=== PATIENT | female | born 1945 | race Caucasian/White ===

== ENCOUNTER 2018-08-22 11:46 | Inpatient (IN) ==
[2018-08-22] MEDS ORDERED: PEPCID ONE (12:52)
[2018-08-22] MEDS ORDERED: KEFZOL 1 GM/D5W 1 GM/50 ML IVPB ONE (12:52)
[2018-08-22] MEDS ORDERED: LR 1,000 ML ONE (12:52)
[2018-08-22] MEDS ORDERED: REGLAN ONE (12:52)
[2018-08-22] MEDS ORDERED: COLACE ONE (13:10)
[2018-08-22] MEDS ORDERED: LYRICA ONE (13:10)
[2018-08-22] MEDS ORDERED: DIPRIVAN 1% ONE (13:17)
[2018-08-22] MEDS ORDERED: XYLOCAINE-MPF 2% ONE (13:19)
[2018-08-22] MEDS ORDERED: QUELICIN (DOSE) ONE (13:20)
[2018-08-22] MEDS ORDERED: TOBRAMYCIN POWDER MISC ONE (15:15)
[2018-08-22] MEDS ORDERED: VANCOMYCIN ONE (15:46)
[2018-08-22] MEDS ORDERED: NEOSPORIN G.U. IRRIGANT ONE (15:46)
[2018-08-22 16:57] LABS: HEMATOCRIT 31.8 % (37.0-47.0); HEMOGLOBIN 10.6 g/dL (12.0-16.0); MCH 30.5 PG (27-31); MCHC 33.3 g/dL (33-37); MCV 91.6 FL (81-99); MPV 9.1 FL (7.4-10.4); RBC 3.47 XMIL (4.2-5.4); RDW 13.4 % (11.5-14.5); WBC 5.83 X1000 (4.8-10.8)
[2018-08-22 17:12] LABS: AGAP 11; BUN 8 mg/dL (8-22); CHLORIDE 98 mmol/L (98-107); COSMO 270; CREATININE 0.5 mg/dL (0.5-0.9); ESTIMATED GFR > 60; GLUCOSE 94 mg/dL (70-104); POTASSIUM 3.2 mmol/L (3.5-5.1); SODIUM 136 mmol/L (136-145); TCO2 27 mmol/L (25-35)
[2018-08-22] MEDS ORDERED: ZOFRAN ONE (17:43)
[2018-08-22] MEDS ORDERED: DECADRON ONE (17:43)
[2018-08-22] MEDS ORDERED: NS 1,000 ML ONE (18:47)
[2018-08-22] MEDS ORDERED: MORPHINE ONE (18:48)
[2018-08-22] MEDS: DEMEROL ONE ×2 (18:51→18:56)
[2018-08-22] MEDS ORDERED: VALIUM PO PRN (20:30)
[2018-08-22] MEDS ORDERED: MORPHINE IV PRN ×3 (21:15)
[2018-08-22] MEDS ORDERED: ZOFRAN PO PRN (21:15)
[2018-08-22] MEDS ORDERED: OXY IR PO PRN ×2 (21:15)
[2018-08-22] MEDS: PERIDEX MT SCH (22:12)
[2018-08-22] MEDS: NS 1,000 ML IV SCH (22:12)
[2018-08-22] MEDS: DIOVAN PO SCH (22:12)
[2018-08-22] MEDS: THEO-DUR PO SCH (22:12)
[2018-08-22] MEDS: CHLOR-TRIMETON PO SCH (22:12)
[2018-08-23] MEDS: KEFZOL 1 GM/D5W 1 GM/50 ML IVPB IV SCH ×2 (00:13→08:41)
[2018-08-23 00:14] LABS: URINE SOURCE CLEAN CATCH
[2018-08-23 00:37] LABS: BILIRUBIN URINE NEGATIVE (NEGATIVE); BLOOD URINE NEGATIVE (NEGATIVE); COLOR YELLOW; GLUCOSE URINE NEGATIVE (NEGATIVE); KETONE URINE NEGATIVE (NEGATIVE); LEUKOCYTES URINE NEGATIVE (NEGATIVE); NITRITE URINE NEGATIVE (NEGATIVE); PROTEIN URINE NEGATIVE (NEGATIVE); SP GRAVITY URINE 1.002; TURBIDITY URINE CLEAR (CLEAR); UR EPITHELIAL CELLS <10 /HPF (<10); URINE BACTERIA NEGATIVE /HPF; URINE RBC <10 /HPF (<10); URINE WBC <10 /HPF (<10); UROBILINOGEN URINE NORMAL (NORMAL)
[2018-08-23] MEDS: PRILOSEC PO SCH (06:00)
[2018-08-23 06:21] LABS: HEMATOCRIT 32.2 % (37.0-47.0); HEMOGLOBIN 10.5 g/dL (12.0-16.0)
[2018-08-23 06:28] LABS: AGAP 12; BUN 13 mg/dL (8-22); CALCIUM 8.8 mg/dL (8.8-10.2); CHLORIDE 98 mmol/L (98-107); COSMO 273; CREATININE 0.6 mg/dL (0.5-0.9); ESTIMATED GFR > 60; GLUCOSE 111 mg/dL (70-104); POTASSIUM 3.5 mmol/L (3.5-5.1); SODIUM 136 mmol/L (136-145); TCO2 26 mmol/L (25-35)
--- NOTE | 2018-08-23 07:39 | OPERATIVE NOTE ---
PROCEDURE DATE: 08/22/2018 PREOPERATIVE DIAGNOSIS: Infection, right reverse shoulder arthroplasty. POSTOPERATIVE DIAGNOSIS: Infection, right reverse shoulder arthroplasty. PROCEDURE: Irrigation, debridement, and application antibiotic beads right reverse shoulder arthroplasty. SURGEON: Xavi Singh MD. BROOM BUILDER: Ej Mcneil RN. ANESTHESIA: General. IV FLUIDS: 800 mL lactated Ringer's. ESTIMATED BLOOD LOSS: 50 mL. COMPLICATIONS: None. INDICATION: This is a 73-year-old female who is approximately 1 month status post right reverse shoulder arthroplasty. The patient upon sustaining a wound dehiscence and had a large hematoma, which was evacuated in the office a week and a half to 2 weeks ago. He underwent local I and D and closure of wound in the office. He was maintained on antibiotics. He continues with residual drainage and cultures were obtained revealing Staphylococcus epidermidis. Given this finding, recommendation to proceed with irrigation and debridement and application antibiotic beads. Risks and benefits of surgery were explained, including the risks of anesthesia, , bleeding, infection, failure to relieve pain, postoperative stiffness, nerve injury, blood clots, and other imponderables. All questions answered. Patient and family wished to proceed. OPERATION: The patient was taken to the operating room and placed supine on the operating table. Once adequate anesthesia was obtained, patient placed in semi-[place]- chair position. The right shoulder was subsequently prepped and draped in usual sterile fashion. The previous surgical sutures were removed from the area of the wound dehiscence, and it was further extended both proximally and distally. The patient did have some superficial purulent- type fluid up under the subcutaneous tissue. It extended under the medial skin envelope. He had some fluid at the joint level 2 with retraction. Intraoperative cultures were obtained. Debridement was conducted as well. The prosthesis is in good position and we had smooth articulation and no evidence of obvious pathology. After adequate debridement had been conducted, 3000 mL of antibiotic pulsatile lavage was copiously irrigated throughout the wound. After this was performed, one bag of Bactisure was irrigated. This was followed by 300o mL of pulsatile lavage for final irrigation. The antibiotic beads, which had been prepared at the beginning of the case, were then placed in the deep soft tissue, as well as subcutaneous tissue. A 1/8 Hemovac drain was placed and was not sewn in. 2-0 Prolene was then used to repair this to repair the skin. Adaptic, sterile 4 x 4s, ABD pad, and tape applied to the right upper extremity. The patient tolerated the procedure well. No complications. Transferred to the recovery room in stable condition. cc: Xavi Singh MD MTDD
--- NOTE | 2018-08-23 08:29 | PROGRESS NOTE ---
DATE: 08/23/2018 SUBJECTIVE: Patient is a pleasant 73-year-old female, who is 1 day status post I and D right reverse shoulder arthroplasty and application of antibiotic beads. She is currently resting comfortably. OBJECTIVE: Right upper extremity: On physical examination, the patient's right upper extremity dressing is intact. She is neurovascularly intact distally. Able to actually elevate her arm. Good asphalt layer strength. LABORATORY DATA: Her hemoglobin is 10.5, hematocrit is 32.2. Patient did have normal sedimentation rate at 7 and normal C-reactive protein at 2.53 on yesterday's lab. Intraoperative Gram stain was negative. Cultures are pending. IMPRESSION: Postoperative day #1 status post incision and drainage and application of antibiotic beads for right reverse shoulder arthroplasty. PLAN: At this point, we will await the culture results. Dr. Black has been consulted, and will await his recommendations. cc: Xavi Singh MD
[2018-08-23] MEDS: PERIDEX MT SCH ×2 (08:41→20:49)
[2018-08-23] MEDS: THEO-DUR PO SCH ×2 (08:42→20:48)
[2018-08-23] MEDS: HYDROCHLOROTHIAZIDE PO SCH (08:42)
[2018-08-23] MEDS: CATAPRES PO SCH (08:43)
[2018-08-23] MEDS: DIOVAN PO SCH ×2 (08:49→20:48)
[2018-08-23] MEDS: NS 1,000 ML IV SCH (10:39)
[2018-08-23 10:45] LABS: INR 0.91
[2018-08-23] MEDS ORDERED: NS 250 ML ONE (11:38)
--- NOTE | 2018-08-23 13:53 | INFECTIOUS DISEASE CONSULT REP ---
DATE: 08/23/2018 CONCLUSION: The patient has a Staph epidermidis infected right total shoulder arthroplasty. RECOMMENDATIONS: I plan on treating the patient with Ancef 2 g IV every 8 hours for 6 weeks and then following that with a low dose of Keflex for a chronic basis. I have also ordered that a PICC should be placed now and also have consulted [facility] to supply the patient's home IV antibiotic. I plan on having the patient back in the office at 3 weeks after discharge and then 6 weeks after discharge, at which time the PICC will be removed and the patient will be placed on a low dose of Keflex, such as 250 to 500 mg p.o. every 12 hours on a chronic basis. DISCUSSION: The patient underwent a total shoulder arthroplasty. After the surgery she developed a serosanguineous drainage from the patient's shoulder. An aspirate of the shoulder grew Staph epidermidis. The culture was wrongly labeled as being from the left hip, but the culture in fact was from the right shoulder. The patient's laboratory studies thus far show a CBC with a white count of 5,830, hemoglobin 10.5, and platelet count 304,000. Creatinine is 0.6. GFR is greater than 60. Urinalysis showed no white cells or bacteria. PAST MEDICAL HISTORY/REVIEW OF SYSTEMS: Eyes and ears: The patient has decreased hearing and vision. Neck: No stiffness. Respiratory: No cough or shortness of breath. Cardiac: No chest pain or palpitations. GI: No nausea, vomiting, or diarrhea. Gastrointestinal: No dysuria or flank pain. Bones, joints, muscle: See present illness. Endocrine: Patient does not have diabetes or thyroid disease. Neurologic: The patient does not have seizures. She can walk without difficulty. She does not have a tremor. Integument: No rash. VALIDATION INTERN HISTORY: Patient has never been . PREVIOUS HOSPITALIZATIONS AND OPERATIONS: Yesterday she underwent irrigation, debridement, and application of antibiotic beads to the right reverse shoulder arthroplasty. She had a right total shoulder arthroplasty performed and she has also had ear surgeries and she was in the hospital once because of a cat bite. MEDICAL DISEASES: Positive for hypertension, osteoarthritis, and asthma. INFECTIOUS DISEASE HISTORY: Positive for urinary tract infection. Negative for pneumonia. FAMILY HISTORY: Positive for diabetes mellitus, myocardial infarction, and stroke. SOCIAL HISTORY: [place] She is . She has dogs and cats for pets. ALLERGIES: She is allergic to sulfa. She also said she is allergic to penicillin. She told me that she once had an injection of penicillin and the area of the injection turned black. The patient guessed that it was possibly from 2 to 3 inches in diameter. She did not have any problems breathing or having a rash. The patient he received Ancef at her surgery when she had her total arthroplasty put in and she did not have any problem with cefazolin. The patient has had Keflex in the past and tolerated it well. HOME MEDICATIONS: Include amlodipine, Chlor-Trimeton, clonidine, diazepam, hydrochlorothiazide, hydrocodone, omeprazole, Theophylline, and valsartan. PHYSICAL EXAMINATION: Vital signs: Temperature is 98.3 degrees, pulse 51, respirations 12, blood pressure 118/57. Patient is 5 feet tall and weighs 129 pounds. General: This is a fairly healthy-appearing, elderly female. She is in no acute distress. Head, eyes, ears, nose, and throat: She has decreased hearing. She wears glasses. There is no drainage from her nose or ears. She does not have any white patches on her tongue. Neck: No meningismus. Thorax: No increased AP diameter. Bones, joints, muscles: The patient has a dressing on the patient's right shoulder and a drain is in place. Lungs: Clear to auscultation. Cardiovascular: Heart rate is regular. Abdomen: Soft and nontender. Extremities: The patient has slight edema of the legs but no erythema. Neurologic: The patient is alert. She can move her extremities. There is no tremor. She has decreased hearing, as mentioned above. Her sensation was intact to touch. Her memory as regarding her medical history was intact. Integument: No rash noted. Thank you for the consult. cc: MD Xavi Prater MD
[2018-08-23] MEDS: KEFZOL 2 GM/D5W 2 GM/50 ML IVPB IV SCH (17:07)
[2018-08-23] MEDS: NORVASC PO SCH (20:48)
[2018-08-23] MEDS: CHLOR-TRIMETON PO SCH (20:48)
[2018-08-24] MEDS: KEFZOL 2 GM/D5W 2 GM/50 ML IVPB IV SCH ×2 (00:27→11:55)
[2018-08-24] MEDS: NS 1,000 ML IV SCH (00:27)
[2018-08-24] MEDS ORDERED: TYLENOL PO PRN (01:01)
[2018-08-24 06:53] LABS: HEMATOCRIT 32.1 % (37.0-47.0); HEMOGLOBIN 10.6 g/dL (12.0-16.0)
[2018-08-24] MEDS: PRILOSEC PO SCH (06:58)
[2018-08-24] MEDS: CATAPRES PO SCH (11:49)
[2018-08-24] MEDS: PERIDEX MT SCH (11:50)
[2018-08-24] MEDS: NORVASC PO SCH ×2 (11:52→12:08)
[2018-08-24] MEDS: HYDROCHLOROTHIAZIDE PO SCH (11:53)
[2018-08-24] MEDS: DIOVAN PO SCH (11:54)
[2018-08-24] MEDS: THEO-DUR PO SCH (12:08)
[2018-08-24 12:25] VITALS: BP 161/61
--- NOTE | 2018-08-24 13:50 | PROGRESS NOTE ---
DATE: 08/24/2018 SUBJECTIVE: The patient is 73-year-old female who is 2 days status post I and D and application antibiotic beads for right reverse shoulder total arthroplasty. She has currently resting comfortably, no significant complaints. OBJECTIVE: Patient's dressing was changed. Wound has some expected drainage, no increased warmth or erythema. She has good smooth articulation of the shoulder. Neurovascular intact distally. Her intraoperative cultures were negative. IMPRESSION: Postoperative day #2 status post incision and drainage and application antibiotic beads right reverse shoulder arthroplasty. PLAN: At this point the patient has received her PICC line and will receive home IV antibiotics with Ancef 2 g IV q.8 hours for [address] Black. All the home arrangements have been made. Will discharge her home and see her back in the office in 12 to 14 days. cc: Xavi Singh MD
--- NOTE | 2018-08-24 13:59 | INFECTIOUS DISEASE PROGRESS NO ---
DATE: 08/24/2018 PRESENT ILLNESS: Ms. Madden has a Staph epidermidis infection to the right shoulder status post right total arthroplasty. She has had an irrigation and debridement with application of antibiotic beads to that right shoulder on this admission. MEDICATIONS: She is on day 1 of Kefzol 2 g IV every 8 hours. PHYSICAL EXAMINATION: Vital Signs: Temperature 98.2 degrees, pulse rate 55, respiratory rate 16, blood pressure 165/80 O2 saturation 99% on room air. General: This is a chronically ill- appearing, elderly female. She is sitting up in the bed, in no acute distress. HEENT: Atraumatic, normocephalic. Oral mucous membranes are pink and moist. Conjunctivae are pale pink. Neck: Supple. Trachea is midline. Cardiovascular: Heart rate is regular. Pedal and radial pulses are palpable bilaterally. Respiratory: Lung sounds are clear and diminished in the bases bilaterally. Respiratory excursion is normal and symmetric. Abdomen: Soft, round, and nontender. Bowel sounds are active. Neurologic: The patient is awake, alert, and oriented. She is able to move all extremities with generalized weakness. Extremities: There is a dressing, which is dry and intact, to her right shoulder and a PICC line to the left upper arm, the site of which has no edema, erythema, or drainage. LABORATORY AND X-RAY: Today, her hemoglobin is 10.6. No other labs drawn today. Her previous right shoulder culture grew Staph epidermidis, however, it was labeled incorrectly as her left hip. No imaging reports today. ASSESSMENT AND PLAN: Ms. Madden has a Staphylococcus epidermidis infection to her right total shoulder arthroplasty. She will need 6 weeks of treatment with Ancef 2 g intravenously every 8 hours. She will be followed by [facility] for home infusions and home health care. We will see her back in our office at 3 weeks and then again at 6 weeks, at which time we should be able to remove the peripherally inserted central catheter and put her on low-dose Keflex for chronic prophylaxis. The previous plans have been discussed with and recommended by Dr. Black. COMORBIDITIES: She is elderly, with arthritis, osteoporosis, chronic anxiety and depression, and poor hearing. Dictated by SABRINA Mcdonald for Sunday Black MD This chart was documented by, SABRINA Mcdonald and accurately reflects the services performed, treatment plan and medical decisions as attested by the providers signature Sunday Black MD. cc: MD Xavi Prater MD MTDD
== END 2018-08-24 14:15 | disposition home health service (06) | DRG 512 ==
LOC: OR 11:46 → 4N 18:15
PROVIDERS: ADMIT Orthopaedic Surgery Adult Reconstructive Orthopaedic Surgery; ATTEND Orthopaedic Surgery Adult Reconstructive Orthopaedic Surgery
CPT/HCPCS: 36569; 80048; 81001; 85014; 85018; 85027; 85610; 85651; 86140; 87070; 87075; 87205; 94761; 94799; 97162; 97530; A9270; J0330; J0690; J1100; J2175; J2270; J2405; J3260; J3370; J7030; J7050; J7120

== ENCOUNTER 2018-11-01 09:40 | Inpatient (IN) ==
--- NOTE | 2018-11-01 10:41 | PROVIDER DOCUMENTATION ---
This chart was entered by Bekah Ryder Scribe, acting as scribe for Kamlesh Collins MD. HPI-General Adult - General Chief Complaint: Flu Symptoms Stated Complaint: N/V Time Seen by Provider: 11/01/18 10:16 Source: patient Allergies/Adverse Reactions: Patient Allergies Allergy/AdvReac Type Severity Reaction Status Date / Time Penicillins Allergy Unknown Verified 08/22/18 13:10 Sulfa (Sulfonamide Allergy Unknown Verified 08/22/18 13:10 Antibiotics) Home Medications: Home Medication List Medication Instructions Recorded Confirmed Last Taken Type Hydrochlorothiazide 25 mg PO QAM 12/20/17 11/01/18 08/22/18 07:00 History Omeprazole 20 mg PO DAILY 12/20/17 11/01/18 08/22/18 07:00 History Clonidine HCl 1 tab PO QAM 12/28/17 11/01/18 08/22/18 07:00 History Theophylline E.r. [Jerry-Dur] 300 mg PO BID 12/28/17 11/01/18 08/22/18 07:00 History Valsartan 160 mg PO BID 12/28/17 11/01/18 08/22/18 07:00 History Amlodipine Besylate 5 mg PO DAILY 07/24/18 11/01/18 08/21/18 19:00 History Chlorpheniramine [Chlor-Trimeton] 4 mg PO HS 07/24/18 11/01/18 08/22/18 07:00 History Diazepam 5 mg PO BID PRN PRN 07/24/18 11/01/18 07/26/18 09:00 History Hydrocodone/Acetaminophen [[place] 1 each PO PRN PRN 07/24/18 11/01/18 Unknown History 5-325 Tablet] CephALEXIN [Keflex] 250 mg PO BID 11/01/18 11/01/18 Unknown History Ondansetron HCl 4 mg PO PRN PRN 11/01/18 11/01/18 Unknown History - History of Present Illness -Gen Adult Nature of Presenting Problems: Patient is a 73 year old female who presents to the ED with loss of appetite and nausea. Patient states symptoms have been present for 3 days. Patient denies vomiting and fever. Followed by Dr. Hernandez. Patient is worried about dehydration but her mouth is moist and is urinating well. Location of Pain/Injury: reports: none Pain Radiation: reports: no radiation Quality of Pain: reports: none Severity: reports: mild Onset/Duration: reports: 4 days ago Timing: reports: still present Context/Activities at Onset: reports: light activity Modifying Factors: improves with: nothing Associated Symptoms: reports: loss of appetite, nausea, weakness Similar Symptoms Previously?: Yes Recently seen or treated by another doctor?: Yes Review of Systems - Adult - REVIEW OF SYSTEMS - ADULT Constitutional: reports: no symptoms reported Eyes: reports: no symptoms reported Ears, Nose, Mouth & Throat: reports: no symptoms reported Cardiovascular: reports: no symptoms reported Respiratory: reports: no symptoms reported Gastrointestinal: reports: nausea, poor appetite. denies: abdominal pain, diarrhea, vomiting Genitourinary: reports: no symptoms reported Musculoskeletal: reports: muscle weakness. denies: back pain, neck pain Integumentary: reports: no symptoms reported Neurological: reports: no symptoms reported Psychiatric: reports: no symptoms reported Endocrine: reports: no symptoms reported Hematologic/Lymphatic: reports: no symptoms reported Allergic/Immunologic: reports: no symptoms reported All Other Systems: Reviewed and Negative Past History - Adult - PAST MEDICAL HISTORY-ADULT Review of Records: reports: Old Records Reviewed, Nursing Assessment Review, Medications Reviewed, Social history reviewed & non-contributory. Major Childhood Illnesses: reports: Measles Cardiovascular: reports: HTN Respiratory: reports: asthma Gastrointestinal: reports: denies history Obstetrical/Gynecological: reports: denies history Genitourinary: reports: denies history Musculoskeletal: reports: arthritis, osteoporosis Neurological: reports: denies history Endocrine/Immune: reports: denies history Other Conditions: reports: denies history - PRIOR SURGERIES/PROCEDURES Surgical/Procedure History: reports: tonsillectomy, joint replacement (shoulder) , other (ear surgery) - IMMUNIZATION STATUS Childhood Immunizations: See Nurse Assessment Flu Vaccine: See Nurse Assessment - FAMILY HISTORY Family History: reviewed, not pertinent - SOCIAL HISTORY Smoking: denies Substance Use: denies Living Situation: family Physical Exam-General - PHYSICAL EXAM-ADULT Initial Vital Signs Reviewed: Yes - CONSTITUTIONAL General Appearance: alert, no apparent distress - EYES Eyes: PERRL/EOMI - HEAD, EARS, NOSE, MOUTH & THROAT HENMT: moist mucous membranes, normal ENT inspection - RESPIRATORY Respiratory: chest non-tender, lungs clear, normal breath sounds - CARDIOVASCULAR Cardiovascular: normal peripheral pulses, regular rate, rhythm - SKIN Integumentary: normal color, normal turgor, warm/dry - NEUROLOGIC Neurologic: grossly normal - PSYCHIATRIC Psych/Mental Status: normal mood/affect, oriented x 3 Progress - PLAN OF CARE/RESULTS Progress/Plan/Lab Results: Vital Signs - 8 hr 11/01/18 09:56 Temperature 98.8 F Pulse Rate 75 Respiratory Rate 18 Blood Pressure 143/81 O2 Sat by Pulse Oximetry 97 Orders Category Date Time Status Flu [INFLUENZA SCREEN PL] Stat Lab 11/01/18 10:00 Received Result Diagrams: 11/01/18 11:55 11/02/18 06:59 - CONSULTS/PCP/HOSPITALIST Notification #1 *Consult/PCP/Hospitalist*: Dr. Hernandez, hospitalist Time Discussed: 18:45 Reason/Comments: patient continues to have low Na/K despite IV replacement Consult Disposition: Admit Departure - Departure Date of Disposition Decision: 11/01/18 Time of Disposition Decision: 18:30 DIAGNOSIS: Anorexia, Hypokalemia, Hyponatremia Disposition: ADMITTED INPATIENT 09 Certified Medical Emergency: Emergent Condition: Stable - Critical Care Note This patient required my direct & personal management of CC.: No Attestation - Physician/ [place] Attestation The physician spent face to face time with patient:: Yes Advanced Practice Provider documentation review:: Supervising physician onsite and consulted in the evaluation and care of this patient. The physician did have a face to face encounter with the patient. This chart was documented by the indicated scribe, (Bekah Ryder Scribe) and accurately reflects the services I performed and decisions made by me, Kamlesh Collins MD, as attested by the provider's signature.
[2018-11-01 10:57] LABS: INFLUENZA A NEGATIVE (NEGATIVE)
[2018-11-01 10:58] LABS: INFLUENZA B NEGATIVE (NEGATIVE)
[2018-11-01 12:06] LABS: BASO# 0.01 X1000 (0.0-0.2); BASO% 0.1 % (0.0-0.8); HEMATOCRIT 38.8 % (37.0-47.0); HEMOGLOBIN 13.9 g/dL (12.0-16.0); IMM GRAN# 0.01 X1000 (0.0-0.04); IMM GRAN% 0.1 % (0.0-0.5); LYMPH# 0.77 X1000 (1.2-3.4); LYMPH% 8.4 % (20.5-51.1); MCH 29.9 PG (27-31); MCHC 35.8 g/dL (33-37); MCV 83.4 FL (81-99); MONO# 0.72 X1000 (0.11-0.59); MONO% 7.9 % (1.7-9.3); MPV 8.5 FL (7.4-10.4); NEUT# 7.65 X1000 (1.4-6.5); NEUT% 83.5 % (42.2-75.2); PLT 517 X1000 (130-400); RBC 4.65 XMIL (4.2-5.4); RDW 13.5 % (11.5-14.5); WBC 9.16 X1000 (4.8-10.8)
[2018-11-01 12:35] LABS: ESTIMATED GFR > 60
[2018-11-01 12:44] LABS: AGAP 16; BUN 20 mg/dL (8-22); CALCIUM 10.7 mg/dL (8.8-10.2); CHLORIDE 78 mmol/L (98-107); COSMO 255; CREATININE 0.7 mg/dL (0.5-0.9); GLUCOSE 111 mg/dL (70-104); POTASSIUM 2.7 mmol/L (3.5-5.1); SODIUM 125 mmol/L (136-145); TCO2 31 mmol/L (25-35)
[2018-11-01] MEDS ORDERED: NS 1,000 ML IV ONE ×3 (12:59→18:45)
[2018-11-01] MEDS: POTASSIUM CHLORIDE 20 MEQ/SWI 20 MEQ/100 ML IVPB IV SCH ×2 (13:38→15:31)
[2018-11-01] MEDS ORDERED: ZOFRAN ODT ONE (14:48)
[2018-11-01] MEDS ORDERED: ZOFRAN ODT PO ONE (14:48)
[2018-11-01] MEDS ORDERED: NS 1,000 ML ONE (15:21)
[2018-11-01] MEDS ORDERED: PHENERGAN IM ONE (15:39)
[2018-11-01 18:18] LABS: ESTIMATED GFR > 60
[2018-11-01 18:42] LABS: AGAP 13; BUN 15 mg/dL (8-22); CALCIUM 9.1 mg/dL (8.8-10.2); CHLORIDE 83 mmol/L (98-107); COSMO 251; CREATININE 0.5 mg/dL (0.5-0.9); GLUCOSE 102 mg/dL (70-104); POTASSIUM 2.5 mmol/L (3.5-5.1); SODIUM 124 mmol/L (136-145); TCO2 28 mmol/L (25-35)
[2018-11-01] MEDS ORDERED: POTASSIUM CHLORIDE 40 MEQ/SWI 40 MEQ/100 ML IVPB IV ONE (18:47)
[2018-11-01] MEDS: ZOFRAN IV PRN (23:09)
[2018-11-01 23:47] LABS: ESTIMATED GFR > 60
[2018-11-01 23:48] LABS: AGAP 12; BUN 14 mg/dL (8-22); CHLORIDE 84 mmol/L (98-107); COSMO 246; CREATININE 0.4 mg/dL (0.5-0.9); GLUCOSE 100 mg/dL (70-104); POTASSIUM 2.8 mmol/L (3.5-5.1); SODIUM 122 mmol/L (136-145); TCO2 26 mmol/L (25-35)
[2018-11-02] MEDS ORDERED: CATAPRES PO ONE (00:25)
[2018-11-02 01:06] LABS: BILIRUBIN URINE NEGATIVE (NEGATIVE); BLOOD URINE 2+ (NEGATIVE); CLARITY CLEAR (CLEAR); COLOR YELLOW; GLUCOSE URINE NEGATIVE (NEGATIVE); KETONE URINE 2+(Moderate) mg/dL (NEGATIVE); LEUKOCYTES URINE NEGATIVE (NEGATIVE); NITRITE URINE NEGATIVE (NEGATIVE); PH URINE 6.5; PROTEIN URINE NEGATIVE (NEGATIVE); SP GRAVITY URINE 1.015; UROBILINOGEN URINE NORMAL
[2018-11-02 01:10] LABS: URINE BACTERIA 2+ /HFP; URINE EPITHELIAL CELLS <10 /HPF (<10); URINE RBC <10 /HPF (<10); URINE SOURCE CLEAN CATCH; URINE WBC <10 /HPF (<10)
[2018-11-02 02:55] LABS: ESTIMATED GFR > 60
[2018-11-02 02:56] LABS: AGAP 12; BUN 15 mg/dL (8-22); CHLORIDE 83 mmol/L (98-107); COSMO 247; CREATININE 0.4 mg/dL (0.5-0.9); GLUCOSE 96 mg/dL (70-104); POTASSIUM 2.7 mmol/L (3.5-5.1); SODIUM 122 mmol/L (136-145); TCO2 27 mmol/L (25-35)
[2018-11-02] MEDS: ZOFRAN IV PRN (06:32)
[2018-11-02] MEDS ORDERED: NORCO-5 PO PRN (06:48)
[2018-11-02] MEDS ORDERED: VALIUM PO PRN (06:48)
[2018-11-02] MEDS ORDERED: ZOFRAN ODT PO PRN (06:48)
[2018-11-02] MEDS ORDERED: KLOR-CON PO ONE (06:50)
[2018-11-02 07:20] LABS: ESTIMATED GFR > 60
[2018-11-02 07:39] LABS: AGAP 12; BUN 15 mg/dL (8-22); CALCIUM 8.7 mg/dL (8.8-10.2); CHLORIDE 81 mmol/L (98-107); COSMO 241; CREATININE 0.4 mg/dL (0.5-0.9); GLUCOSE 98 mg/dL (70-104); POTASSIUM 2.7 mmol/L (3.5-5.1); SODIUM 121 mmol/L (136-145); TCO2 26 mmol/L (25-35)
[2018-11-02] MEDS: THEO-DUR PO SCH ×2 (08:04→20:44)
[2018-11-02] MEDS: DIOVAN PO SCH ×2 (08:05→20:45)
[2018-11-02] MEDS: NORVASC PO SCH (08:05)
[2018-11-02] MEDS: KLOR-CON PO SCH ×2 (08:05→20:44)
[2018-11-02] MEDS: CATAPRES PO SCH (08:07)
[2018-11-02] MEDS: PRILOSEC PO SCH (08:07)
[2018-11-02] MEDS ORDERED: KLOR-CON PO SCH (09:00)
--- NOTE | 2018-11-02 14:44 | HISTORY AND PHYSICAL ---
CHIEF COMPLAINT: Loss of appetite and nausea. HISTORY OF PRESENT ILLNESS: This is a 73-year-old female who presents to the emergency room complaining of about 3 days of loss of appetite, generalized weakness, and nausea. She denied any vomiting or any fevers or chills. She was found to be hyponatremic with a sodium of 125 and hypokalemic with a potassium of 2.7. She did receive IV hydration as well as potassium repletion in the emergency room, and she is being admitted for further evaluation and treatment. PAST MEDICAL HISTORY: Hypertension, chronic arthritis, osteoporosis, hard of hearing, COPD. SOCIAL HISTORY: She denies alcohol, tobacco, or illicit drug use. ALLERGIES: Sulfa and penicillin, which cause unknown reactions. HOME MEDICATIONS: A list will be obtained by the nursing staff and once verified, we will restart as appropriate. REVIEW OF SYSTEMS: Discussed with the patient, with pertinent positives stated in the HPI. She denied any chest pain or palpitations, any syncope, dizziness, cough, fever, or chills, any vomiting, diarrhea, constipation, black or bloody vomitus or stools, any hematuria, dysuria, frequency, or urgency. PHYSICAL EXAMINATION: GENERAL: This is a 73-year-old female who is sitting up in the bed. In no distress. VITAL SIGNS: Blood pressure is 190/87 with a heart rate of 68, respirations are 20, temperature is 97.6 degrees oral with O2 saturations 94% to 96% on room air. EYES: Pupils are equal, round, and react to light. EOMs are intact. Sclerae are anicteric. HEENT: Head is normocephalic and atraumatic. Mucous membranes are moist. NECK: Supple with trachea midline. CARDIOVASCULAR: Regular rate and rhythm. S1 and S2 appreciated. She has no lower extremity edema. Peripheral pulses are palpable x4 extremities. PULMONARY: Breath sounds are clear. No increased work of breathing noted. Chest rises and falls symmetrically with respiration. GASTROINTESTINAL: Abdomen soft, nontender, and nondistended with bowel sounds in all 4 quadrants. NEUROLOGIC: She is alert and oriented x3. SKIN: Warm and dry. LABORATORY DATA: WBC is 9.1 with a hemoglobin of 13.9, hematocrit 38.8, and platelets of 517,000. Sodium on admission was 125 with a potassium of 2.7, BUN 20, creatinine 0.7 with a glucose of 111. On labs this morning, sodium is 121, potassium 2.7, BUN 15, creatinine 0.4. Her magnesium is 1.7. Urine culture is pending. ASSESSMENT: 1. Hyponatremia. 2. Hypokalemia. 3. Nausea with anorexia. 4. Generalized weakness. 5. History of hypertension. 6. COPD no exacerbation PLAN: The patient has been admitted to the medical-surgical floor. She was placed on telemetry, which will continue. Will do hyponatremia workup and continue with gentle hydration. We will trend electrolytes and replete as appropriate. Strict I and O. Will identify her home medications and continue these as is appropriate. Urine culture. Further treatments pending hospital course. Dictated by SABRINA Panchal for Reggie Hernandez MD This chart was documented by, SABRINA Panchal and accurately reflects the services performed, treatment plan and medical decisions as attested by the providers signature Reggie Hernandez MD. cc: SABRINA Panchal MD [facility]
[2018-11-03] MEDS: ZOFRAN IV PRN ×2 (02:05→21:51)
--- NOTE | 2018-11-03 02:39 | HISTORY AND PHYSICAL ---
CHIEF COMPLAINT: Flu-like symptoms. HISTORY OF PRESENT ILLNESS: Patient presented to the hospital with increased abdominal pain, nausea. Denies any fevers or actual vomiting. Has not really kept anything down over the past couple of days. Has been more fatigued. Has not taken her blood pressure medication because she has been nauseated. We will admit patient to the hospital. Most likely she has a viral gastroenteritis. She certainly does not appear to have the flu as her flu test is negative. Her symptoms do not appear to be flu like. We will admit her to the hospital. She currently has hyponatremia, hypokalemia and hypertension. We will replace her electrolytes. Restart her home medications and follow. Please see full note. cc: Reggie Hernandez MD
[2018-11-03] MEDS: PRILOSEC PO SCH (06:00)
[2018-11-03 06:24] LABS: AGAP 15; ALBUMIN 3.2 g/dL (3.5-5.0); ALKALINE PHOSPHATASE 74 U/L (32-104); BUN 22 mg/dL (8-22); CALCIUM 8.9 mg/dL (8.8-10.2); CHLORIDE 82 mmol/L (98-107); COSMO 247; CREATININE 0.4 mg/dL (0.5-0.9); ESTIMATED GFR > 60; GLUCOSE 133 mg/dL (70-104); GOT 20 U/L (10-30); GPT 10 U/L (10-36); POTASSIUM 3.2 mmol/L (3.5-5.1); TCO2 23 mmol/L (25-35); TOTAL PROTEIN 5.8 g/dL (6.3-8.3)
[2018-11-03 06:28] LABS: SODIUM 120 mmol/L (136-145)
--- NOTE | 2018-11-03 07:39 | Diag Imaging Result Doc PS360 ---
CHEST/ABD TUBE PLACEMENT - 11/03/2018 4:44 AM INDICATION: Tube placement COMPARISON: 3:45 AM FINDINGS: There is a nasogastric tube with the tip in the gastric fundus. IMPRESSION: Nasogastric tube in good position. Electronically signed by Yao Angela 11/03/2018 7:36 AM
--- NOTE | 2018-11-03 07:40 | Diag Imaging Result Doc PS360 ---
CHEST/ABD TUBE PLACEMENT - 11/03/2018 3:45 AM INDICATION: Tube placement COMPARISON: 2:39 AM FINDINGS: There is a nasogastric tube with the tip in the distal stomach or duodenal bulb. IMPRESSION: Nasogastric tube with the tip in the distal stomach or duodenal bulb. On the follow-up exam this was adjusted and is in the gastric fundus. Electronically signed by Yao Angela 11/03/2018 7:37 AM
--- NOTE | 2018-11-03 07:43 | Diag Imaging Result Doc PS360 ---
KUB ABDOMEN - 11/03/2018 INDICATION: abdominal pain/pressure/nausea/diarrhea COMPARISON: None FINDINGS: There are several abnormally gas-distended loops of small bowel filling the lower abdomen and pelvis. These measure up to 3.7 cm. There is gas throughout the colon. No rectal gas. No evidence of free air. IMPRESSION: Abnormally gas-distended loops of small bowel compatible with small bowel obstruction. Electronically signed by Yao Angela 11/03/2018 7:41 AM
[2018-11-03] MEDS ORDERED: NS 1,000 ML IV SCH (08:00)
[2018-11-03] MEDS: POTASSIUM CHLORIDE 20 MEQ/SWI 20 MEQ/100 ML IVPB IV SCH ×2 (10:35→16:00)
[2018-11-03] MEDS: NS 1,000 ML IV SCH ×2 (10:35→20:26)
[2018-11-03 11:47] LABS: ESTIMATED GFR > 60
[2018-11-03 11:50] LABS: AGAP 15; ALBUMIN 3.2 g/dL (3.5-5.0); ALKALINE PHOSPHATASE 69 U/L (32-104); BUN 18 mg/dL (8-22); CALCIUM 8.9 mg/dL (8.8-10.2); CHLORIDE 81 mmol/L (98-107); COSMO 246; CREATININE 0.5 mg/dL (0.5-0.9); GLUCOSE 102 mg/dL (70-104); GOT 20 U/L (10-30); GPT 10 U/L (10-36); MAGNESIUM 1.7 mg/dL (1.5-2.7); SODIUM 121 mmol/L (136-145); TCO2 25 mmol/L (25-35); TOTAL PROTEIN 5.7 g/dL (6.3-8.3)
--- NOTE | 2018-11-03 16:04 | Diag Imaging Result Doc PS360 ---
CT ABD/PELVIS W/IV CONT ONLY - 11/03/2018 INDICATION: ? sbo COMPARISON: None FINDINGS: There are [id number] bilateral pleural effusions. There is some dependent atelectasis in the lung bases. There is a nasogastric tube in good position in the stomach. There is moderate body wall edema. There is trace ascites. There is diffuse, very mild dilation of the small bowel without a transition point. There is a small amount of gas and stool throughout the colon. Abdominal organs are all grossly normal. There is subluxation with severe degeneration of the left hip. There are erosive changes as a result. There is advanced spondylosis of the thoracolumbar spine. No acute or suspicious bony lesions. IMPRESSION: 1. Diffusely abnormally dilated small bowel without transition point. There is some gas and stool in colon. The appearance is nonspecific, consistent with ileus. 2. Pleural effusions, trace ascites, body wall edema. This exam was performed using automated exposure control, adjustment of mA or kV according to patient size, and/or use of iterative reconstruction technique Electronically signed by Yao Angela 11/03/2018 4:02 PM
[2018-11-03] MEDS: CATAPRES PO SCH (16:10)
[2018-11-03] MEDS: DIOVAN PO SCH ×2 (16:11→23:57)
[2018-11-03] MEDS: KLOR-CON PO SCH (16:11)
[2018-11-03] MEDS: NORVASC PO SCH (16:11)
[2018-11-03] MEDS: THEO-DUR PO SCH (16:11)
[2018-11-03] MEDS ORDERED: APRESOLINE IV ONE (16:59)
[2018-11-03] MEDS ORDERED: POTASSIUM CHLORIDE 20 MEQ/SWI 20 MEQ/100 ML IVPB IV SCH (23:00)
--- NOTE | 2018-11-04 00:08 | PROGRESS NOTE ---
DATE: 11/03/2018 SUBJECTIVE: Patient had a rough night last night. She was admitted as noted with nausea, occasional vomiting and abdominal pain, but last night the staff noted that she had increased abdominal size. KUB was ordered, showed increased distention of her colon. NG tube was placed. Large amount was suctioned via wall suction. Patient has started feeling much better. This morning, her abdomen is soft, nondistended and she notes that she is feeling better. Her nausea has improved but is still present. The patient has underlying early dementia symptoms that are making her entire symptomatology quite difficult. No blood was noted in her emesis or stool. PHYSICAL EXAMINATION: Vital Signs: Temperature 98 degrees, pulse 73, respiratory 20, BP 157/61. General: Patient is in no current respiratory distress. She is awake, alert. She is lying flatly in the bed. Has an NG tube to wall suction. HEENT: Normocephalic. Neck: Supple. Cardiovascular: Regular rate. No murmurs. Chest: Clear and nonlabored. No crackles. No wheezing. Abdomen: Soft. Greatly decreased bowel sounds, nondistended, diffusely but minimally tender. Extremities: Moves all extremities. Neurologic: No focal changes. ASSESSMENT: 1. Small bowel ileus that appears to be improving. 2. Hyponatremia. Sodium remains low at 122. 3. Hypertension. Blood pressure is much better than on admission. Patient has a large difficulty controlling her blood pressure at home. I am uncertain if stress, anxiety, or her forgetting to take her medication is the cause. She frequently will hold her medicine if she does not think she needs it and is afraid of taking any medications. PLAN: We will continue patient in the hospital. Continue NG to suction currently. If her symptoms continue to improve, we will clamp her tube and hopefully remove over the next day or so. We will check a CT of the abdomen. We will consider transfer to [facility] for Nephrology as well as GI input. We will continue to follow. Further orders as needed. cc: Reggie Hernandez MD
[2018-11-04] MEDS: ZOFRAN IV PRN (06:09)
[2018-11-04] MEDS: ATIVAN IV PRN (06:15)
[2018-11-04 06:22] LABS: HEMATOCRIT 37.9 % (37.0-47.0); MCH 29.5 PG (27-31); MCHC 34.3 g/dL (33-37); MCV 86.1 FL (81-99); MPV 10.1 FL (7.4-10.4); RBC 4.4 XMIL (4.2-5.4); RDW 13.6 % (11.5-14.5); WBC 6.32 X1000 (4.8-10.8)
[2018-11-04 06:50] LABS: ESTIMATED GFR > 60
[2018-11-04 07:02] LABS: AGAP 19; ALB/GLOB RATIO 1.5; ALBUMIN 3.7 g/dL (3.5-5.0); ALKALINE PHOSPHATASE 73 U/L (32-104); BUN 13 mg/dL (8-22); CALCIUM 8.2 mg/dL (8.8-10.2); CHLORIDE 88 mmol/L (98-107); COSMO 259; CREATININE 0.3 mg/dL (0.5-0.9); GLUCOSE 72 mg/dL (70-104); GOT 23 U/L (10-30); GPT 11 U/L (10-36); POTASSIUM 3.2 mmol/L (3.5-5.1); SODIUM 130 mmol/L (136-145); TCO2 23 mmol/L (25-35); TOTAL BILIRUBIN 0.81 mg/dL (0.20-1.00); TOTAL PROTEIN 6.2 g/dL (6.3-8.3)
[2018-11-04] MEDS: NS 1,000 ML IV SCH (07:43)
[2018-11-04] MEDS ORDERED: CATAPRES-TTS-2 TD SCH (11:30)
[2018-11-04] MEDS: POTASSIUM CHLORIDE 40 MEQ in NS 1,000 ML IV SCH (12:05)
[2018-11-04] MEDS: NORVASC PO SCH (12:06)
[2018-11-04] MEDS: THEO-DUR PO SCH (12:06)
[2018-11-04] MEDS: PRILOSEC PO SCH (12:07)
[2018-11-04] MEDS: POTASSIUM CHLORIDE 20 MEQ/SWI 20 MEQ/100 ML IVPB IV SCH (12:07)
[2018-11-04] MEDS: DIOVAN PO SCH (12:07)
--- NOTE | 2018-11-04 13:54 | CONSULTATION ---
DATE OF CONSULTATION: 11/04/2018 Ms Kasie Madden is a 73-year-old white female who prior to her presentation to our emergency department on 11/01/2018 she was having nausea and vomiting. Her describes as gastroenteritis. She was admitted initially to [facility]. A flat and upright abdominal film suggested ileus. She had abnormal dilatation of her small bowel but she had air throughout her colon. An NG tube has been placed. Electrolytes are being corrected. A CT scan performed yesterday suggested ileus and she was transferred from [facility] to [facility] for further care. PAST MEDICAL HISTORY: Hypertension, chronic arthritis, osteoporosis, hard of hearing, COPD. MEDICATIONS: Hydrochlorothiazide, omeprazole, clonidine, , valsartan, amlodipine, diazepam, pain medicine, Keflex and Zofran. ALLERGIES: Sulfa. SOCIAL HISTORY: She is , retired, does not smoke. REVIEW OF SYSTEMS: A 14-point review of systems was performed. She has had no previous abdominal surgery. FAMILY HISTORY: Noncontributory. PHYSICAL EXAMINATION: Ms. Madden is sleeping this morning. She has a peripheral IV on the left. She has an NG tube in place without much output. There may be some blood in her canister.Heart: Has a regular rate. Holter monitor is on. Lungs: Clear. There is no work of breathing. Abdomen: Soft without tenderness. No costovertebral tenderness. Rectal: Exam was not performed. She does have palpable peripheral pulses. No peripheral edema. Neurological: She is alert and oriented x3 and appropriate. LABS: White blood cell count is normal. Hematocrit is 38%. Her potassium is low. Sodium was low but it is being corrected. She is receiving IV hydration. Liver function tests are within normal limits. Stool C difficile toxin is negative. Her flu test is negative. CT scan of her abdomen and pelvis suggested some minimally dilated small bowel loops with air and stool in the colon. PLAN: I agree with IV hydration and correction of electrolytes. I would remove her NG tube with any evidence of bowel activity and advance her diet. cc: Francine Kaminski MD [facility]
[2018-11-04] MEDS ORDERED: PROTONIX IV SCH (15:00)
--- NOTE | 2018-11-04 15:02 | PROGRESS NOTE ---
DATE: 11/04/2018 SUBJECTIVE: This patient is alert and oriented x 3. She knows she is in a hospital. She thinks she is at [facility], though. She is not quite sure about her situation. She seems to be confused on and off. I am not quite sure if this patient has a medical history of dementia. Since her blood pressure medication has been stopped because she is n.p.o. and has a nasal cannula, I will put her on a clonidine patch. She takes clonidine at home 0.2 mg daily and I will use hydralazine as needed if the blood pressure is above 180. She has an NG tube and a coffee- ground material is coming out from it. At the moment of my evaluation around 300 mL of fluid coming out from the stomach was evident. Abdomen and pelvis CT from yesterday showed diffusely abnormal dilated small bowel without transition point. There is some gas and stool in the colon. The appearance is nonspecific consistent with ileus. She also has some pleural effusion, trace ascites and body wall edema. OBJECTIVE: Vital Signs: Temperature 98.2, pulse 76, respiratory rate 16, blood pressure 186/83. Oxygen saturation 99% on room air. HEENT: Head normocephalic, no trauma. PERRLA. An NG to wall suction with coffee-ground material. Neck: Supple. No JVD. Central trachea. Chest: Clear to auscultation. Some rales at the bases. Abdomen: Soft, with decreased bowel sounds. Nondistended. Nontender. Extremities: No edema. No clubbing. No cyanosis. Neurologic: Like I said, the patient is alert. She is oriented x 3. She knows she is in a hospital. She believes this is [facility]. She is not sure about her situation and she seems to be confused on and off. LABORATORY: WBC 6.3, hemoglobin 13, hematocrit 37.9, platelets 313,000. Sodium 130, potassium 3.2, chloride 88, bicarbonate 23, BUN 13, creatinine 0.3, glucose 72, calcium 8.2, albumin 3.7. ASSESSMENT AND PLAN: 1. Small bowel obstruction versus ileus. Surgery Department has been consulted. We will continue with same management for now. 2. Upper GI bleed Gastroenterology Department has been consulted. We will continue to monitor. 3. Hyponatremia. Sodium level is better compared with yesterday. I will continue with the same management. Nephrology Department consulted already. 4. Hypertension. I have placed this patient on a clonidine patch and also Ativan as needed. Will monitor for now. She is n.p.o. 5. Hypokalemia. I will replace the potassium. I will add potassium to the IV fluids. cc: Benedict Lyman MD MTDD
--- NOTE | 2018-11-04 15:12 | NEPHROLOGY CONSULTATION ---
DATE: 11/04/2018 REASON FOR ADMISSION: Loss of appetite, nausea. REASON FOR CONSULTATION: Hypokalemia. Assist with management. CONSULTING PHYSICIAN: Dr. Luna. HISTORY OF PRESENT ILLNESS: This is a 73-year-old female who presented to the [facility] secondary to loss of appetite, weakness and nausea. She was found to be hyponatremic at that time the sodium in the 120s and hypokalemic with potassium 2.7. She received IV hydration, potassium repletion. She was treated there and transferred over to [facility] secondary to continued hyponatremia. Is noted that part of her home medication list included hydralazine and that was stopped on admission. The patient is also noted to have a history of COPD and during hospitalization workup found that she has a small bowel ileus and obstruction. She has been on NG to low intermittent suction and has been followed by surgery. The patient today has been treated for some anxiety and is sleepy but arousable. Information is obtained from the at the bedside. PAST MEDICAL HISTORY: As listed as hypertension, chronic arthritis, osteoporosis, hard of hearing, COPD, GERD, chronic pain. SURGICAL HISTORY: Cholecystectomy, section and a history of ESWL. ALLERGIES: Penicillin, sulfa. HOME MEDICATIONS: Listed as hydrochlorothiazide, omeprazole, clonidine, theophylline, valsartan, amlodipine, Chlor-Trimeton, diazepam, hydrocodone, acetaminophen, ondansetron and cephalexin. FAMILY HISTORY: Negative. SOCIAL HISTORY: No tobacco, ETOH or illicit drug use. REVIEW OF SYSTEMS: Pertinent positives noted above in HPI. PHYSICAL EXAM: Vital Signs: Temperature 98.1 degrees, pulse 81, respiratory rate 18, blood pressure 177/75, intake 899 mL, output 1025 mL. General: This is an elderly female resting in bed. She appears drowsy but in no acute distress. HEENT: Normocephalic, atraumatic. Conjunctivae are pink. Oral mucosa dry. She has an NG tube to low intermittent suction with maroon-colored drainage noted. Neck: Supple. No JVD. Cardiovascular: Regular rate and rhythm. Pulmonary: She has some decreased breath sounds but no rales or rhonchi. Abdomen: Soft with positive bowel sounds. : Dwyer catheter. Extremities: No clubbing, cyanosis or edema. Integumentary: Skin is thin, warm and dry. Neurologic: Grossly nonfocal aside from drowsiness. LAB DATA: Sodium 130 (121, 120, 121, 122), potassium 3.2, chloride 88, CO2 23 , BUN 13, creatinine 0.3, on November 02 she had a serum osmolality of 254. ASSESSMENT/PLAN: 1. Hyponatremia in the setting of home medication with hydrochlorothiazide with improvement by withholding this medicine and addition of NS. She had a rise of her sodium of 10 points over the last 24 hours. This is an acceptable range. We will continue her current treatment plan with no changes currently. Likely the patient will need to use a different diuretic than hydrochlorothiazide in the future and I did discuss with her at the bedside that she may have to be aware of drinking electrolyte containing fluids or other treatments as warranted but we would determine that closer to discharge. We would like to see where her sodium will wind up after her current treatment. 2. Hypokalemia is improved. Again she has received repletion. Please note with her electrolytes she does have a history of chronic obstructive pulmonary disease. Dictated by SABRINA Campoverde for Lauri Babcock MD cc: Lauri Babcock MD [facility]
--- NOTE | 2018-11-04 18:49 | GASTROENTEROLOGY CONSULTATION ---
DATE: 11/04/2018 REQUESTING PHYSICIAN: Dr. Luna. PRIMARY CARE PHYSICIAN: Dr. Hernandez. REASON FOR CONSULTATION: Coffee-grounds emesis. HISTORY OF PRESENT ILLNESS: Ms. Madden is a 73-year-old female, who was admitted on 11/01/2018 at [facility] for loss of appetite and nausea. She was noted to be hyponatremic with sodium of 125 and potassium of 2.7. She had workup done, which showed abnormal imaging. Her CT scan done on 11/03/2018 showed: 1. Small to moderate size bilateral pleural effusions. 2. Some dependent atelectasis in lung bases. 3. Nasogastric tube in good position in the stomach. 4. Moderate body wall edema. 5. Trace ascites. 6. Diffuse very mild dilation of the small bowel without a transition point. 7. Small amount of gas and stool throughout the colon. 8. Subluxation with severe degeneration of the left hip. 9. Advanced spondylosis of thoracolumbar spine. She was then transferred to [facility] from [facility]. She has been seen by Dr. Kaminski for small bowel ileus, and Dr. Kaminski has recommended conservative management with correction of electrolytes and IV hydration. They had also noted her NG tube putting out coffee- grounds, and Gastroenterology was consulted. The patient is confused, so most of the history is taken from the records and the nursing staff. PAST MEDICAL HISTORY: Hypertension, chronic arthritis, osteoporosis, hearing loss, chronic obstructive pulmonary disease. PAST SURGICAL HISTORY: The patient had history of shoulder surgery on 08/22/[address] Singh and rotator cough repair arthroplasty on 07/26/2018. ALLERGIES: Include sulfa and penicillin. SOCIAL HISTORY: No history of tobacco, alcohol, or illicit drugs. REVIEW OF SYSTEMS: Could not be obtained. Patient is confused. MEDICATIONS IN THE HOSPITAL: Include Carafate, Norvasc, clonidine, hydralazine, Ativan, Zofran, Protonix, Theophylline, Valsartan, hydralazine. She is currently n.p.o. PHYSICAL EXAMINATION: Vital signs: Temperature 98.5 degrees, pulse rate 80, respiratory rate 16, blood pressure 162/79, saturating 94% on room air. Weight: Body weight of 121 pounds 14.4 ounces. BMI 23 kg/m2. General Appearance: Thinly built, lying in bed, in no acute distress. HEENT: No pallor. No icterus. Pupils equal, reactive to light and accommodation. Nasal cannula in place. NG tube in place. Neck: Supple. Abdomen: Soft, nondistended. No guarding or rebound. Extremities: No cyanosis or clubbing. Neurological: She is awake, answers questions, but she is confused, she is disoriented to time, place, and person. DIAGNOSTIC STUDIES: Hemoglobin is 13, hematocrit 37.9, white count of 6.32, platelet count of 313,000. Sodium 130, potassium 3.2, chloride of 88, bicarbonate 23, anion gap 19, BUN of 13, creatinine 0.3, glucose of 72, calcium is 8.2, total bilirubin is 0.81, AST 23, ALT 11, alkaline phosphatase 72, total protein 6.2, albumin of 3.7. Stool C difficile toxin is negative. Flu screen for A and B is negative. Urine analysis showed 2+ ketones and 2+ blood. IMPRESSION AND PLAN: 1. Confusion, unclear etiology. She may benefit from a CT of the head in order to rule out for any kind of stroke. 2. Ileus. Surgery has been consulted. They have suggested conservative management. 3. Electrolyte imbalance. This is being corrected by the primary team. 4. Coffee-grounds emesis. It could be secondary to trauma. We will watch her hemoglobin and hematocrit. We will check her hemoglobin and hematocrit tomorrow. We will plan to do EGD once her confusion is improved and her mental status is improved. We will continue on PPIs for now. We will increase it to b.i.d. We will start on Carafate 1 g every 6 hours. 5. The patient is malnourished. The patient has not eaten for the last 2 days. We will start her on Clinimix. 6. Bowel regimen. We will start with Dulcolax once daily at bedtime. 7. Once the NG tube aspiration slows down, we may be able to clamp the tube and possible removal of the tube if okay with Surgery team. This tube is making her uncomfortable. The above plans were discussed with the patient's nursing staff, and all questions were answered. Please call us with any questions. cc: MD Benedict Castle MD Gregory S. Pitt, MD Dr. Walker
[2018-11-04] MEDS ORDERED: CARAFATE LIQUID PO SCH (20:00)
[2018-11-04] MEDS: APRESOLINE IV PRN (23:29)
[2018-11-04] MEDS: PROTONIX IV SCH (23:35)
[2018-11-04] MEDS: CLINIMIX E 4.25%-5% SOLUTION 1,000 ML IV SCH (23:36)
[2018-11-04] MEDS: DULCOLAX PR SCH (23:41)
[2018-11-04] MEDS: CARAFATE LIQUID PO SCH (23:41)
[2018-11-05] MEDS: DIOVAN PO SCH ×3 (00:27→22:02)
[2018-11-05] MEDS: THEO-DUR PO SCH ×3 (00:27→22:03)
[2018-11-05] MEDS: ZOFRAN IV PRN (02:32)
[2018-11-05] MEDS: POTASSIUM CHLORIDE 40 MEQ in NS 1,000 ML IV SCH ×2 (03:34→14:08)
[2018-11-05] MEDS: CARAFATE LIQUID PO SCH ×4 (04:20→22:03)
[2018-11-05] MEDS: APRESOLINE IV PRN (04:57)
[2018-11-05] MEDS: ATIVAN IV PRN ×2 (04:58→17:19)
[2018-11-05 06:50] LABS: BASO# 0.02 X1000 (0.0-0.2); BASO% 0.4 % (0.0-0.8); EOS# 0.01 X1000 (0.0-0.7); EOS% 0.2 % (0.0-10.0); HEMATOCRIT 36.6 % (37.0-47.0); HEMOGLOBIN 12.4 g/dL (12.0-16.0); IMM GRAN# 0.02 X1000 (0.0-0.04); IMM GRAN% 0.4 % (0.0-0.5); LYMPH# 0.56 X1000 (1.2-3.4); LYMPH% 9.9 % (20.5-51.1); MCH 29.5 PG (27-31); MCHC 33.9 g/dL (33-37); MCV 87.1 FL (81-99); MONO# 0.68 X1000 (0.11-0.59); MPV 9.6 FL (7.4-10.4); NEUT# 4.37 X1000 (1.4-6.5); NEUT% 77.1 % (42.2-75.2); PLT 422 X1000 (130-400); RDW 13.6 % (11.5-14.5); WBC 5.66 X1000 (4.8-10.8)
[2018-11-05 06:53] LABS: AGAP 16; ALB/GLOB RATIO 1.4; ALBUMIN 3.3 g/dL (3.5-5.0); ALKALINE PHOSPHATASE 68 U/L (32-104); BUN 14 mg/dL (8-22); CALCIUM 8.5 mg/dL (8.8-10.2); CHLORIDE 94 mmol/L (98-107); COSMO 269; CREATININE 0.4 mg/dL (0.5-0.9); ESTIMATED GFR > 60; GLUCOSE 101 mg/dL (70-104); GOT 17 U/L (10-30); GPT 9 U/L (10-36); POTASSIUM 3.1 mmol/L (3.5-5.1); SODIUM 134 mmol/L (136-145); TCO2 24 mmol/L (25-35); TOTAL BILIRUBIN 0.69 mg/dL (0.20-1.00); TOTAL PROTEIN 5.7 g/dL (6.3-8.3)
[2018-11-05 09:40] LABS: HEPATITIS PROFILE ACUTE SEE COMMENTS
[2018-11-05] MEDS: PROTONIX IV SCH ×2 (10:11→22:02)
[2018-11-05] MEDS: SODIUM CHLORIDE 0.9% INJ SCH ×2 (10:11→22:02)
[2018-11-05] MEDS: NORVASC PO SCH (10:16)
--- NOTE | 2018-11-05 10:18 | NEPHROLOGY PROGRESS NOTE ---
DATE: 11/05/2018 SUBJECTIVE: The patient states that she keeps hearing a noise and people talking. No other issues. OBJECTIVE: Vital Signs: Temperature 98.7 degrees, pulse 80, respiratory rate 19, blood pressure 162/78. Intake 2.1 L. Output 1.5 L. General: This is an elderly female resting in bed. She is awake and alert. She does appear confused, but no distress. HEENT: Normocephalic, atraumatic. Conjunctivae are pink. Oral mucosa dry. She continues with NG tube to low intermittent suction. Neck: Supple without JVD. Cardiovascular: Regular rate and rhythm. Pulmonary : She is clear bilaterally. Abdomen: Soft. Hypoactive bowel sounds. Genitourinary: Dwyer catheter with yellow urine. Extremities: No clubbing, cyanosis, or edema. Integumentary: Skin is warm and dry. LABORATORY DATA: WBC 5.6, hemoglobin 12.4. Sodium 134, potassium 3.1, CO2 24, creatinine 0.4. ASSESSMENT AND PLAN: Hyponatremia. This is likely secondary to her hydrochlorothiazide. She has had improvement back to acceptable levels by holding this medication. Her urine output has been adequate. She continues with gentle IV hydration. We have nothing further to add and will sign off at this time. If we can be of further assistance, please do not hesitate to contact us. Dictated by SABRINA Campoverde for Lauri Babcock MD Face to face encounter, data reviewed, discussed with Davis Bazan on 11/05/18. I agree with the above assessment and plan of care. cc: Lauri Babcock MD [facility]
--- NOTE | 2018-11-05 10:40 | GASTROENTEROLOGY PROGRESS NOTE ---
DATE: 11/05/2018 SUBJECTIVE: Patient resting in bed. She is slightly confused. She has difficulty hearing as well. Her is at bedside. We spoke to the patient's and the patient and the nursing staff. The patient denies any new complaints. Her NG tube is putting out small amount of bloody aspirate. This is likely from NG tube trauma because the hematocrit is stable. Her abdomen is soft. She is moving her bowels. So we will clamp the NG tube and start on liquid diet. OBJECTIVE: Vital signs: Temperature 98.7 degrees, pulse of 80, respiratory rate 19, blood pressure 162/78, saturating 96% on room air. General appearance: Ms. Madden is lying in bed, in no acute distress. HEENT: No pallor. No icterus. NG tube in place. Neck: Supple. Abdomen: Soft, nontender, nondistended. No guarding or rebound. Extremities: No cyanosis, clubbing. Neurologic: She was awake, but confused, but her confusion has been slowly improving and she was less confused as compared to yesterday. She was able to answer some of my questions. A part of that is also because she has difficulty hearing and her hearing aid was not working. LABORATORIES: Hemoglobin and hematocrit is 12.4 and 36.6, white count of 5.6, platelet count of 422,000. Sodium 132, potassium 3.1, chloride 94, bicarb 24, anion gap 16, BUN of 14, creatinine 0.4, glucose of 101, calcium is 8.5, total bilirubin is 0.69, AST 17, ALT 9, alkaline phosphatase 60, total protein 5.2, albumin 3.3. Urine culture showed no pathogenic growth. IMPRESSION AND PLAN: 1. Coffee-ground emesis. In this regard, we will check an EGD tomorrow. The procedure of EGD was explained to the patient and family, including risks, benefits, indications, alternatives. We will schedule her tomorrow with Dr. Jimenez. 2. Small bowel ileus appears to have resolved. She had a bowel movement a couple of days ago. Her belly is soft. NG tube aspiration has slowed down a lot. So we will clamp the NG tube for 4 hours and give her a trial of clear liquid diet and recheck the NG tube aspiration. She will continue on aspiration precautions. 3. Bowel regimen. Dulcolax 10 mg per rectal at bedtime. 4. Malnutrition. She will be on Clinimix until she can go back to oral feeding and tolerating it well. 5. Gastrointestinal prophylaxis with proton pump inhibitor b.i.d. This will help with coffee- ground emesis. Her coffee-ground emesis could be secondary to NG tube trauma versus peptic ulcer disease. We will check with EGD tomorrow. The above plan of care discussed with the patient and family at bedside. Also the patient's nurse. All questions were answered. Please call us with any further questions. cc: MD Reggie Castle MD
[2018-11-05] MEDS: CLINIMIX E 4.25%-5% SOLUTION 1,000 ML IV SCH (14:08)
--- NOTE | 2018-11-05 15:06 | PROGRESS NOTE ---
DATE: 11/05/2018 SUBJECTIVE: This patient has been having some confusion on and off. She does have dementia. I had a conversation with the , who is at the bedside, and he corroborated this information. Tomorrow she will have an upper endoscopy to see why she is having an upper GI bleed. Probably the ileus has been resolved. She does have some bowel sounds, and she does not remember if she is passing gas or not. OBJECTIVE: Vital Signs: Temperature 98.3 degrees, pulse 86, respiratory rate 22, blood pressure 152/71, oxygen saturation 96% on room air. HEENT: Head normocephalic. No trauma. PERRLA. Neck: Supple. No JVD. No masses. Central trachea. Chest: Clear to auscultation. No wheezing. Some rales at the bases. Abdomen: Soft. Positive bowel sounds but decreased. Nontender, nondistended. No hepatosplenomegaly. Extremities: No edema. No clubbing. No cyanosis. Neurological: The patient is alert. She is oriented x2. She is not oriented to place. She is able to recognize family members at the bedside and follows commands, but she has been confused on and off. She does have dementia. LABORATORY DATA: WBC 5.6, hemoglobin 12.4, hematocrit 36.6, platelets 422,000. Sodium 134, potassium 3.1, chloride 94, bicarbonate 24, BUN 14, creatinine 0.4, glucose 101, calcium 8.5, albumin 3.3. ASSESSMENT AND PLAN: 1. Small bowel obstruction versus ileus. I think this patient's ileus/obstruction is better. She is having some bowel sounds. She does have dementia, and she does not remember if she has been passing gas. Family members at the bedside. The abdomen is nondistended, and she has been tolerating a liquid diet, which has been recommended by Gastroenterology Department. 2. Upper gastrointestinal bleed. This patient will have an upper endoscopy done tomorrow. 3. Hyponatremia. Sodium level is better today compared with yesterday. We will continue to monitor. 4. Hypertension. Continue with clonidine patch and hydralazine as needed. 5. Hypokalemia. I will replace the potassium through her intravenous fluids. 6. Physical deconditioning. I have requested an evaluation by occupational therapy and physical therapy. 7. Dementia. It looks like she has been a couple of months in and out from the hospital for different reasons, and as per the she has been declining really fast. We will continue to monitor. We will keep an eye on her. cc: Benedict Lyman MD
--- NOTE | 2018-11-05 15:54 | PROGRESS NOTE ---
DATE: 11/05/2018 Ms. Kasie Madden's NG tube has been removed. She is tolerating liquids. Her abdomen is soft. She has had some bowel activity. Her electrolytes are being corrected. I think there is plan for upper endoscopy tomorrow. cc: Francine Kaminski MD
[2018-11-05] MEDS: DULCOLAX PR SCH (22:03)
[2018-11-06] MEDS: ZOFRAN IV PRN ×2 (02:18→08:36)
[2018-11-06] MEDS: CLINIMIX E 4.25%-5% SOLUTION 1,000 ML IV SCH (02:18)
[2018-11-06] MEDS: ATIVAN IV PRN (02:34)
[2018-11-06] MEDS: CARAFATE LIQUID PO SCH (02:53)
[2018-11-06] MEDS: DULCOLAX PR SCH (02:53)
--- NOTE | 2018-11-06 06:32 | CONSULTATION ---
DATE OF CONSULTATION: 11/05/2018 REASON FOR CONSULTATION: Altered mental status. HISTORY OF PRESENT ILLNESS: This is a 73-year-old right-handed female who was admitted 11/01/2018 with nausea with loss of appetite and abdominal pain. She was noted to be hyponatremic with a sodium as low as 120. Additionally, she was found to have a small bowel ileus and has been managed conservatively. Her hyponatremia is also being corrected. NG tube had coffee ground appearance to the output. EGD is planned for tomorrow. Apparently yesterday the patient was more confused than baseline. She was disoriented to place and to timing. That seems to have improved quite a bit today. At one point she sent her home because she thought it was 2:00 a.m. when in reality it was midday. She has anxiety and per has been under significant stress in recent months. She has had multiple joint issues including knees, hips and shoulders. She had shoulder surgery I believe to the right shoulder not too long ago. The himself has recently been diagnosed with a metastatic melanoma. There are financial stresses. tells me that for around five years or so she has had declining functioning. He does not believe her memory is too bad but she does seem to misplace items at times and occasionally forgets people's names for instance. He seems to focus on how she manages the finances. He says he is bothered by the fact that instead of writing out checks for bills she instead takes each bill to the individual company and stands in line for hours waiting to pay the bill or she may make a phone call the day before the bill is due. He is not certain if she has always done this or if this is new in the last few years. He cannot tell me other specific details of her daily functioning but seems to say that her functioning has declined in the last handful of years or so. The patient herself repeatedly explains why she pays the bills the way that she does citing financial constraints. She currently is fixated on a negative interaction she had with a nursing home aide today which seems to have been a very mild one but it has really bothered her. At one point she suddenly screams out because she wants other people to leave the room. She is tearful at times. The patient has not had any workup or evaluation for cognitive impairment. She has no known history of stroke or seizure. PAST MEDICAL HISTORY: Includes arthritis, hypertension, osteoporosis, hearing loss, COPD. SOCIAL HISTORY: She is . No tobacco, alcohol or illicits. FAMILY HISTORY: No strokes or seizures. ALLERGIES: Listed to penicillin and sulfa. CURRENT MEDICATIONS: Were reviewed in the chart. She has p.r.n. lorazepam 0.5 mg q.12.h. She had received only one dose at about 5:00 a.m. this morning. REVIEW OF SYSTEMS: A balance of 12 was conducted and is otherwise negative except for that detailed in the HPI. PHYSICAL EXAMINATION: Vital signs: Afebrile. Blood pressure current 176/82. Pulse 80s. Respirations 20. 97% on room air. Ms. Madden is supine in bed with the head of bed elevated. She is awake, alert. She is oriented to self, location, year, month, day of the week and to the President. She was off by two days on the date. Follows simple and complex commands consistently. Left, right and digit distinction preserved. No dysarthria. No language disturbance. Discusses remote events and some recent events. Pupils are equal , round and reactive. Gaze is conjugate. Extraocular movements are full. Visual campos intact to direct confrontational testing. She has some hearing loss. Face symmetric with equal activation. Facial sensation reported intact. Tongue is midline. Palate elevates symmetrically. Shoulder shrug is full. No drift. Her strength is well preserved in the arms and legs and symmetric with the exception of her right upper extremity which effort there seems to be inhibited more by range of motion and discomfort than actual definite weakness. Sensation to light touch and pin prick reported symmetric in the limbs. Reflexes are absent at the ankles, trace at the wrist. No clonus. Plantar response is downgoing. Rapid alternating movements are symmetric and intact. Oulwum-sd-ahav is preserved. LABORATORY: Normal white count. Sodium 125 on admission. As low as 120, current 134. BUN and creatinine are not elevated. Blood sugars normal. Calcium 8.5. Magnesium normal. AST, ALT not elevated. There has not been cranial imaging. ASSESSMENT AND PLAN: 1. Global encephalopathy. Multifactorial. She was noted to be more disoriented yesterday but reports from and staff indicate that that confusion has improved today. She was oriented on my bedside exam. Her apparent improvement is reassuring. I would continue treating her underlying electrolyte abnormalities and other medical conditions as you are doing. Any preexisting cognitive impairment syndrome would predispose her to encephalopathy and that may be more protracted. If she does not continue to show improvement then we can consider either CT or contrasted MRI of the brain. 2. She may have an underlying cognitive impairment syndrome. This is difficult to superior court judge in the hospital setting with her acute medical conditions. It has been ongoing for approximately five years per the . I think we can perform a more complete cognitive assessment as an outpatient. I would use frequent reorienting while she is hospitalized: lights on, tv on, interaction during the day and less of this at night. 3. They report longstanding anxiety and OCD tendencies. Likely contributing to her presentation. Thank you for the consultation. cc: Toya Lindsay MD MTDD
[2018-11-06] MEDS ORDERED: XYLOCAINE-MPF 2% ONE (07:03)
[2018-11-06] MEDS ORDERED: DIPRIVAN 1% ONE (07:03)
[2018-11-06 07:38] LABS: BASO# 0.02 X1000 (0.0-0.2); BASO% 0.3 % (0.0-0.8); EOS# 0.01 X1000 (0.0-0.7); EOS% 0.1 % (0.0-10.0); HEMATOCRIT 37.9 % (37.0-47.0); HEMOGLOBIN 12.6 g/dL (12.0-16.0); IMM GRAN# 0.02 X1000 (0.0-0.04); IMM GRAN% 0.3 % (0.0-0.5); LYMPH# 0.78 X1000 (1.2-3.4); LYMPH% 11.2 % (20.5-51.1); MCH 29.5 PG (27-31); MCHC 33.2 g/dL (33-37); MCV 88.8 FL (81-99); MONO# 0.56 X1000 (0.11-0.59); MPV 9.2 FL (7.4-10.4); NEUT% 80.1 % (42.2-75.2); PLT 406 X1000 (130-400); RBC 4.27 XMIL (4.2-5.4); RDW 13.7 % (11.5-14.5); WBC 6.99 X1000 (4.8-10.8)
[2018-11-06 08:20] LABS: AGAP 15; BUN 11 mg/dL (8-22); CALCIUM 8.4 mg/dL (8.8-10.2); CHLORIDE 93 mmol/L (98-107); COSMO 264; CREATININE 0.4 mg/dL (0.5-0.9); ESTIMATED GFR > 60; GLUCOSE 129 mg/dL (70-104); MAGNESIUM 1.7 mg/dL (1.5-2.7); PHOSPHORUS 1.9 mg/dL (2.7-4.5); POTASSIUM 3.5 mmol/L (3.5-5.1); SODIUM 131 mmol/L (136-145); TCO2 23 mmol/L (25-35)
[2018-11-06] MEDS ORDERED: PROTONIX PO SCH (09:00)
[2018-11-06] MEDS ORDERED: NORVASC PO SCH (09:00)
[2018-11-06] MEDS ORDERED: CENTRUM SILVER PO SCH (09:00)
--- NOTE | 2018-11-06 09:59 | OPERATIVE NOTE ---
PROCEDURE DATE : 11/06/2018 PROCEDURE: Upper gastrointestinal endoscopy. PROVIDER: Con Jimenez MD INDICATIONS: Coffee ground emesis. MEDICATIONS: Monitored anesthesia care. DESCRIPTION OF PROCEDURE: Prior to the procedure, a history and physical was performed. The patient's medications and allergies were reviewed. The patient's tolerance of previous anesthesia was also reviewed. The risks and benefits of the procedure and the sedation options and risks were discussed with the patient. All questions were answered. Informed consent was obtained after reviewing the risks and benefits. The patient was deemed in satisfactory condition to undergo the procedure. The endoscope was passed under direct visualization. Throughout the procedure, the patient's blood pressure, pulse, and oxygen saturations were monitored continuously. The endoscope was introduced through the mouth and advanced to the second part of the duodenum. The upper GI endoscopy was accomplished without difficulty. The patient tolerated the procedure well. COMPLICATIONS: No immediate complications. ESTIMATED BLOOD LOSS: Minimal. FINDINGS: The esophagus revealed a moderate sized hiatal hernia. Z-line was regular. In the stomach, there was patchy moderate erythema suggestive of gastritis in the gastric body. Random gastric biopsies were obtained with cold forceps to rule out H. pylori. Retroflexion in the stomach revealed small, whitish plaques in the gastric fundus suggestive of erosions versus Dot. Biopsies were obtained to rule out infection. The first portion and second portion of duodenum were normal. IMPRESSION: 1. Gastritis. 2. Hiatal hernia. 3. Abnormal mucosa in the gastric fundus. RECOMMENDATIONS: - Resume diet. - Transition IV pantoprazole to oral pantoprazole twice daily. - Stop Carafate - Follow up pathology. Will follow with you. Please call with any questions or concerns. [facility]
[2018-11-06] MEDS ORDERED: STERILE WATER INJ. INJ ONE (10:19)
[2018-11-06] MEDS ORDERED: GEODON IM ONE (10:19)
[2018-11-06] MEDS ORDERED: ATIVAN IV PRN (10:30)
[2018-11-06] MEDS: DIOVAN PO SCH (10:56)
[2018-11-06] MEDS: THEO-DUR PO SCH (11:00)
[2018-11-06 15:34] VITALS: BP 136/73
--- NOTE | 2018-11-06 19:19 | DISCHARGE SUMMARY ---
ADMISSION DATE: 11/01/2018 DISCHARGE DATE: 11/06/2018 CONSULTATIONS: 1. Dr. Stan Kaminski with General Surgery. 2. Dr. Lauri Babcock with Nephrology. 3. Dr. Mahoney with Gastroenterology. 4. Dr. Toya Lindsay with Neurology. PERTINENT PROCEDURES: 1. Abdominal x-ray: Abnormally gas distended loops of small bowel compatible with small-bowel obstruction. 2. Abdomen and pelvis CT: Diffusely normal dilated small bowel without transient point. There is some gas and stool in the colon. The appearance is nonspecific, consistent with ileus, pleural effusion, trace ascites, and body wall edema. 3. EGD performed by Dr. Con Jimenez. DISCHARGE DIAGNOSES: 1. Small-bowel obstruction versus ileus. Initially, an NG tube was placed. She was evaluated by General Surgery, who wanted to pursue conservative treatment with bowel rest and IV fluids. The patient did have return of normal bowel function. Her NG tube was discontinued; however, before it was discontinued, she did have some coffee-grounds emesis noted. 2. Probable upper gastrointestinal (GI) bleed. The patient underwent an EGD with Dr. Jimenez, which showed gastritis, hiatal hernia, abnormal mucosa in the gastric and fundus. Recommend to resume her diet, transition her to IV PPI and a p.o., stop her Carafate. They will follow the pathology. 3. Hyponatremia, improved. 4. Hypertension. Continue with home medications. 5. Hypokalemia, resolved. 6. Probable dementia. The patient has been evaluated by Neurology. They feel that her global encephalopathy is multifactorial secondary to her electrolyte abnormalities and other medical conditions, and they would like to explore any preexisting cognitive impairment syndrome on an outpatient basis. Continues frequent reorienting, more activity during the day with interaction, and less in the evening. 7. Physical deconditioning. Patient has been working with physical therapy. They have chosen to go home with home health. HOSPITAL COURSE: Briefly, Ms. Madden is a 73-year-old female who was admitted on 11/01/2018 at [facility] for loss of appetite and nausea. She was noted to be hyponatremic with a sodium of 125 and a potassium of 2.7. She had a CT of the abdomen and pelvis that showed small to moderate bilateral pleural effusions, moderate body wall edema, trace ascites, diffuse very mild dilatation of the small bowel without a transient point, small amount of gas and stool throughout the colon. An NG tube was placed. She was transferred from [place] to [facility], where she was seen and assessed by Dr. Kaminski with General Surgery for small-bowel ileus. He recommended conservative management with correction of her electrolytes and IV fluids. It was noted her NG tube was putting out coffee-grounds emesis. Gastroenterology was consulted, and she was initiated on IV PPI and Carafate. Her ileus has resolved along with electrolytes after replenishment. It was felt that her hyponatremia was secondary to her hydrochlorothiazide. She underwent an EGD with Dr. Jimenez that showed gastritis, hiatal hernia, and abnormal mucosa in the gastric fundus. He recommends to resume her diet, transition the IV PPI to p.o. twice daily, stop her Carafate. They will follow up on the pathology. She did have some physical deconditioning as well as some probable metabolic encephalopathy that was multifactorial, given her acute care setting, acute illness, as well as electrolyte imbalances. Dr. Lindsay would like to further explore any preexisting cognitive dysfunctions on an outpatient basis. She has worked with physical therapy and has chosen to go home with [facility]. VITAL SIGNS: At time of discharge, temperature is 98.1 degrees, heart rate 82, respirations 14, blood pressure 136/73, O2 is 96% on room air. DISCHARGE DIET: Regular. DISCHARGE MEDICATIONS: 1. Diazepam 5 mg p.o. b.i.d. p.r.n. 2. Hydrochlorothiazide 25 mg p.o. q.a.m. 3. [place] 5/325 mg 1 each p.o. p.r.n. 4. Prilosec 20 mg p.o. daily. 5. Zofran 4 mg p.o. p.r.n. 6. Jerry-Dur 300 mg p.o. b.i.d. 7. Valsartan 160 mg p.o. b.i.d. 8. Seroquel 50 mg p.o. at bedtime. 9. Amlodipine 5 mg p.o. b.i.d. 10. [id number] one each TD every 7 days. 11. Centrum Silver 1 each p.o. daily. DISPOSITION: Ms. Madden is being discharged home with [facility] [place] and her . FOLLOW-UP: She is to follow up with her primary care physician, Dr. Reggie Hernandez, continue to follow up pathology for her gastric biopsy, as well as follow up with Dr. Crawford on November 26 at 1:30 p.m. INSTRUCTIONS: She can return to the ED or call 911 for any worsening of symptoms. DISCHARGE TIME: 35 minutes. Dictated by SABRINA Farfan for Lacho Maya MD Addendum: Patient seen and examined by myself. Agree with SABRINA note. It reflects my assessment and plan. Patient is being discharged in stable condition to home. Will be seen by Neurologist as outpatient. Will set up home health services for PT three times per week. cc: MD Reggie Peter MD MTDSantosh
== END 2018-11-06 17:39 | disposition home health service (06) | DRG 388 ==
LOC: P.ED 09:40 → P.MEDSURG 21:09 → SUATTDRO 21:09 → 4N 11-03 19:34
PROVIDERS: ATTEND Internal Medicine
CPT/HCPCS: 74000; 74018; 74177; 80048; 80053; 80074; 81001; 83735; 83930; 83935; 84100; 84300; 85025; 85027; 87088; 87275; 87276; 87324; 87804; 88305; 88312; 96365; 96366; 96372; 97116; 97162; 97530; 99285; A9270; C9113; J0360; J2060; J2405; J2550; J3480; J3486; J7030; Q9967; S0164

== ENCOUNTER 2018-11-09 13:29 | Observation (INO) ==
[2018-11-09 14:45] LABS: BASO# 0.02 X1000 (0.0-0.2); BASO% 0.3 % (0.0-0.8); EOS# 0.02 X1000 (0.0-0.7); EOS% 0.3 % (0.0-10.0); HEMATOCRIT 36.6 % (37.0-47.0); HEMOGLOBIN 12.2 g/dL (12.0-16.0); IMM GRAN# 0.02 X1000 (0.0-0.04); IMM GRAN% 0.3 % (0.0-0.5); LYMPH# 1.36 X1000 (1.2-3.4); LYMPH% 19.1 % (20.5-51.1); MCH 29.2 PG (27-31); MCHC 33.3 g/dL (33-37); MCV 87.6 FL (81-99); MONO# 0.71 X1000 (0.11-0.59); NEUT# 4.98 X1000 (1.4-6.5); PLT 438 X1000 (130-400); RBC 4.18 XMIL (4.2-5.4); WBC 7.11 X1000 (4.8-10.8)
[2018-11-09 15:18] LABS: AGAP 11; ALB/GLOB RATIO 1.7; ALBUMIN 4.3 g/dL (3.5-5.0); ALKALINE PHOSPHATASE 95 U/L (32-104); BUN 12 mg/dL (8-22); CALCIUM 9.7 mg/dL (8.8-10.2); CHLORIDE 91 mmol/L (98-107); COSMO 265; CREATININE 0.5 mg/dL (0.5-0.9); ESTIMATED GFR > 60; GLUCOSE 117 mg/dL (70-104); GOT 19 U/L (10-30); GPT 10 U/L (10-36); SODIUM 132 mmol/L (136-145); TCO2 30 mmol/L (25-35); TOTAL BILIRUBIN 0.43 mg/dL (0.20-1.00); TOTAL PROTEIN 6.9 g/dL (6.3-8.3)
[2018-11-09 15:20] LABS: POTASSIUM 2.5 mmol/L (3.5-5.1)
[2018-11-09] MEDS ORDERED: KLOR-CON PO ONE (16:36)
--- NOTE | 2018-11-09 17:08 | ED EKG INTERP ---
This chart was entered by Bekah Ryder Scribe, acting as scribe for Arsh Putnam MD. EKG Interpretation - EKG Time of EKG reading by physician:: 14:22 EKG Read and Signed by:: Arsh Putnam EKG Interpretation (*Must complete 3 of following elements*): Abnormal Rate: 60 Rhythm: normal sinus rhythm QRS: RBB Comments: possible left atrial enlargement. Attestation - Physician/ THEODORE Attestation The physician spent face to face time with patient:: No Advanced Practice Provider documentation review:: Supervising physician onsite and consulted in the evaluation and care of this patient. The physician did not have a face to face encounter with the patient. This chart was documented by the indicated scribe, (Bekah Ryder Scribe) and accurately reflects the services I performed and decisions made by me, Arsh Putnam MD, as attested by the provider's signature.
[2018-11-09 17:38] LABS: URINE SOURCE CLEAN CATCH
[2018-11-09 17:41] LABS: BILIRUBIN URINE NEGATIVE (NEGATIVE); BLOOD URINE NEGATIVE (NEGATIVE); COLOR YELLOW; GLUCOSE URINE NEGATIVE (NEGATIVE); KETONE URINE NEGATIVE (NEGATIVE); LEUKOCYTES URINE NEGATIVE (NEGATIVE); NITRITE URINE NEGATIVE (NEGATIVE); PH URINE 7.5; PROTEIN URINE NEGATIVE (NEGATIVE); TURBIDITY URINE CLEAR (CLEAR); UROBILINOGEN URINE NORMAL (NORMAL)
[2018-11-09 17:44] LABS: UR EPITHELIAL CELLS <10 /HPF (<10); URINE BACTERIA NEGATIVE /HPF; URINE RBC <10 /HPF (<10); URINE WBC <10 /HPF (<10)
--- NOTE | 2018-11-09 18:26 | EKG Report ---
Test Performed on : 11/09/2018 2:22:10 PM Test Reason : electrolyte embalance Blood Pressure : / mmHG Vent. Rate : 060 BPM Atrial Rate : 060 BPM P-R Int : 164 ms QRS Dur : 142 ms QT Int : 460 ms P-R-T Axes : 031 026 024 degrees QTc Int : 460 ms Normal sinus rhythm. Possible Left atrial enlargement Right bundle branch block Abnormal ECG When compared with ECG of 24-JUL-2018 13:38, Right bundle branch block is now present Unconfirmed Result
[2018-11-09] MEDS ORDERED: MAG-OX PO ONE (20:13)
[2018-11-09] MEDS ORDERED: NS + KCL 40 MEQ 1,000 ML IV SCH (20:15)
[2018-11-09 21:57] LABS: AGAP 13; BUN 11 mg/dL (8-22); CALCIUM 9.3 mg/dL (8.8-10.2); CHLORIDE 95 mmol/L (98-107); COSMO 269; CREATININE 0.6 mg/dL (0.5-0.9); ESTIMATED GFR > 60; GLUCOSE 96 mg/dL (70-104); POTASSIUM 3.1 mmol/L (3.5-5.1); SODIUM 135 mmol/L (136-145); TCO2 27 mmol/L (25-35)
--- NOTE | 2018-11-09 21:59 | HISTORY AND PHYSICAL ---
PRIMARY CARE PHYSICIAN: Dr. Hernandez. CHIEF COMPLAINT: Weakness, not feeling well. HISTORY OF PRESENTING ILLNESS: A 73-year-old female with a history of dementia, hypertension, GERD, hearing loss who had presented to emergency department with several days history of having worsening weakness and not feeling well. Apparently she was admitted earlier in the month for hypokalemia and treated and then discharged. However she states that she was doing well but over the past several days she started to have the same symptoms of feeling weak. She was evaluated the emergency department. She was found to be hypokalemic and due to her presenting symptoms, she will need admission for further management. At the time my examination patient denied any headache, fever, chills, chest pain, shortness of breath, hemoptysis but complained of weakness. PAST MEDICAL HISTORY: Includes hearing loss, dementia, hypertension, GERD. PAST SURGICAL HISTORY: Ear surgery, right shoulder surgery. ALLERGIES: Penicillin and sulfur. CURRENT MEDICATIONS: Include Norvasc 5 mg p.o. b.i.d., clonidine patch 1 patch every 7 days, diazepam 5 mg p.o. b.i.d., hydrochlorothiazide 25 mg p.o. q.a.m., [place] 5/325 1 p.o. q.6 hours, omeprazole 20 mg p.o. daily, quetiapine 50 mg 1 p.o. at bedtime, theophylline ER 300 mg 1 p.o. b.i.d., valsartan 160 mg p.o. b.i.d. SOCIAL HISTORY: She denies any history of smoking, alcohol or illicit drug use. FAMILY HISTORY: No history of coronary disease. REVIEW OF SYSTEMS: Fourteen point review of system as listed in HPI other systems negative. PHYSICAL EXAMINATION: GENERAL: Cooperative, friendly female she is resting comfortably. VITAL SIGNS: Temperature 97 degrees, pulse 66, respirations 16, blood pressure 129/61. HEENT: Atraumatic, normocephalic. Extraocular movements intact. PERRLA. NECK: No masses. CHEST: Clear to auscultation. CARDIOVASCULAR: Regular rate and rhythm. ABDOMEN: Soft, positive bowel sounds. EXTREMITIES: +1 edema. NEURO: She is awake, alert, oriented x3. : No bladder distention. SKIN: Warm. LABORATORIES AND STUDIES: WBC 7.11, hemoglobin 12.2, hematocrit 36.6, platelets 438,000, sodium 132, potassium 2.5, chloride 91, CO2 is 30, BUN is 12, creatinine 0.5, glucose is 117, troponin is 0.010. ASSESSMENT: A 73-year-old female with a history of hearing loss, hypertension, gastroesophageal reflux disease who had presented to emergency department with several days history of having weakness. She was evaluated in the emergency department. She was found to be hypokalemic with a potassium of 2.5, due to her presenting symptoms she will require admission for further management . 1. Generalized weakness. 2. Hypokalemia. 3. Hypertension. 4. Gastroesophageal reflux disease. PLAN: 1. We will admit patient to medical floor with telemetry. 2. Continue to monitor her electrolytes closely and replace them. 3. Monitor blood pressure resume antihypertensive agent. 4. Restart other home medications. 5. Put patient on DVT prophylaxis with SCD. 6. Will continue to follow and reassess make further recommendation based on clinical course. cc: Renard Moreno MD
--- NOTE | 2018-11-09 22:01 | PROVIDER DOCUMENTATION ---
This chart was entered by Bekah Ryder Scribe, acting as scribe for Mohinder Carias MD. HPI-General Adult - General Chief Complaint: Edema Stated Complaint: EDEMA/BILA LEGS Time Seen by Provider: 11/09/18 17:14 Source: patient Allergies/Adverse Reactions: Patient Allergies Allergy/AdvReac Type Severity Reaction Status Date / Time Penicillins Allergy Unknown Verified 08/22/18 13:10 Sulfa (Sulfonamide Allergy Unknown Verified 08/22/18 13:10 Antibiotics) Home Medications: Home Medication List Medication Instructions Recorded Confirmed Last Taken Type Hydrochlorothiazide 25 mg PO QAM 12/20/17 11/01/18 08/22/18 07:00 History Omeprazole 20 mg PO DAILY 12/20/17 11/01/18 08/22/18 07:00 History Theophylline E.r. [Jerry-Dur] 300 mg PO BID 12/28/17 11/01/18 08/22/18 07:00 History Valsartan 160 mg PO BID 12/28/17 11/01/18 08/22/18 07:00 History Diazepam 5 mg PO BID PRN PRN 07/24/18 11/01/18 07/26/18 09:00 History Hydrocodone/Acetaminophen [[place] 1 each PO PRN PRN 07/24/18 11/01/18 Unknown History 5-325 Tablet] Ondansetron HCl 4 mg PO PRN PRN 11/01/18 11/01/18 Unknown History Amlodipine Besylate 5 mg PO BID #60 tab 11/06/18 Unknown Rx Clonidine Patch [Ybhwhxce-Ple-4] 1 ea TD Q7D #5 patch 11/06/18 Unknown Rx Multivitamins/Minerals [Cent[place] 1 each PO DAILY tablet 11/06/18 Unknown Rx Silver] Quetiapine [Seroquel] 50 mg PO QHS #90 tab 11/06/18 Unknown Rx - History of Present Illness -Gen Adult Nature of Presenting Problems: Patient is a 73 year old female who presents to the ED with edema to bilateral lower extremities. Patient states edema started this morning. Patient does not report pain. Location of Pain/Injury: reports: none Pain Radiation: reports: no radiation Quality of Pain: reports: none Severity: reports: mild Onset/Duration: reports: this morning Timing: reports: still present Context/Activities at Onset: reports: light activity Modifying Factors: improves with: nothing Associated Symptoms: reports: denies symptoms Similar Symptoms Previously?: No Recently seen or treated by another doctor?: Yes Review of Systems - Adult - REVIEW OF SYSTEMS - ADULT Constitutional: reports: no symptoms reported Eyes: reports: no symptoms reported Ears, Nose, Mouth & Throat: reports: no symptoms reported Cardiovascular: reports: no symptoms reported Respiratory: reports: no symptoms reported Gastrointestinal: reports: no symptoms reported Genitourinary: reports: no symptoms reported Musculoskeletal: reports: no symptoms reported Integumentary: reports: no symptoms reported Neurological: reports: no symptoms reported Psychiatric: reports: no symptoms reported Endocrine: reports: no symptoms reported Hematologic/Lymphatic: reports: no symptoms reported Allergic/Immunologic: reports: no symptoms reported All Other Systems: Reviewed and Negative Past History - Adult - PAST MEDICAL HISTORY-ADULT Review of Records: reports: Nursing Assessment Review, Medications Reviewed, Social history reviewed & non-contributory. Major Childhood Illnesses: reports: Measles Cardiovascular: reports: HTN Respiratory: reports: asthma Gastrointestinal: reports: denies history Obstetrical/Gynecological: reports: denies history Genitourinary: reports: denies history Musculoskeletal: reports: arthritis, osteoporosis Neurological: reports: denies history Psychiatric: reports: denies history Endocrine/Immune: reports: denies history Other Conditions: reports: denies history - PRIOR SURGERIES/PROCEDURES Surgical/Procedure History: reports: tonsillectomy, joint replacement (shoulder) , other (ear surgery) - IMMUNIZATION STATUS Childhood Immunizations: See Nurse Assessment Flu Vaccine: See Nurse Assessment - FAMILY HISTORY Family History: reviewed, not pertinent - SOCIAL HISTORY Smoking: denies Substance Use: denies Living Situation: family Physical Exam-General - PHYSICAL EXAM-ADULT Initial Vital Signs Reviewed: Yes - CONSTITUTIONAL General Appearance: alert, no apparent distress - HEAD, EARS, NOSE, MOUTH & THROAT HENMT: normal ENT inspection - NECK Neck: normal inspection - RESPIRATORY Respiratory: chest non-tender, lungs clear, normal breath sounds - CARDIOVASCULAR Cardiovascular: normal peripheral pulses, regular rate, rhythm - MUSCULOSKELETAL Extremity: other (1 + pitting edema to bilateral lower extremities.) Progress - PLAN OF CARE/RESULTS Progress/Plan/Lab Results: Vital Signs - 8 hr 11/09/18 14:09 11/09/18 16:30 11/09/18 17:17 Temperature 97.6 F Pulse Rate 66 58 L 61 Respiratory Rate 16 16 19 Blood Pressure 129/61 129/64 144/60 O2 Sat by Pulse Oximetry 99 99 97 Laboratory Results - last 24 hr 11/09/18 11/09/18 14:30 14:30 WBC 7.11 RBC 4.18 L Hgb 12.2 Hct 36.6 L MCV 87.6 MCH 29.2 MCHC 33.3 RDW Std Deviation 14.0 Plt Count 438 H MPV 9.0 Immature Gran % (Auto) 0.3 Neut % (Auto) 70.0 Lymph % (Auto) 19.1 L Cloud % (Auto) 10.0 H Eos % (Auto) 0.3 Baso % (Auto) 0.3 Immature Gran # (Auto) 0.02 Neut # (Auto) 4.98 Lymph # (Auto) 1.36 Cloud # (Auto) 0.71 H Eos # (Auto) 0.02 Baso # (Auto) 0.02 Sodium 132 L Potassium 2.5 L* Chloride 91 L Carbon Dioxide 30 Anion Gap 11 BUN 12 Creatinine 0.5 Estimated GFR/1.73 m2 > 60 BUN/Creatinine Ratio 24 Glucose 117 H Calculated Osmolality 265 Calcium 9.7 Total Bilirubin 0.43 AST 19 ALT 10 Alkaline Phosphatase 95 Total Protein 6.9 Albumin 4.3 Globulin 2.6 Albumin/Globulin Ratio 1.7 Orders Category Date Time Status CBC WITH ELECTRONIC DIFF [HEME] Stat Lab 11/09/18 14:30 Completed CK PROFILE [SP CHEM] Stat Lab 11/09/18 17:21 Ordered COMPREHENSIVE METABOLIC PANEL [CHEM] Stat Lab 11/09/18 14:30 Completed MAGNESIUM [CHEM] Stat Lab 11/09/18 17:23 Ordered PRO B-NATRIURETIC PEPTIDE Stat Lab 11/09/18 17:21 Ordered TROPONIN T Stat Lab 11/09/18 17:21 Ordered URINALYSIS W/POSS RFLX CULT [URINALYSIS] Stat Lab 11/09/18 17:21 Uncollected Potassium Chloride E.r. [Klor-Con] Med 11/09/18 16:36 Discontinued 60 meq PO NOW ONE Generalized Adult Illness >60 Stat Oth 11/09/18 14:12 Ordered EKG [EKG] Stat Ther 11/09/18 14:12 Ordered Result Diagrams: 11/09/18 14:30 11/09/18 19:18 - REASSESSMENT Reassessment #1 Time Reassessed: 20:15 Status: other (WEAKNESS + HYPOKALEMIA; PATIENT WAS PREVIOUS ADMITTED FOR HYPOKALEMIA AND REVIEW OF PROGRESS NOTE, PATIENT'S POTASSIUM WAS REPLETED WHILE INPATIENT BUT NO FUTHER WORK UP TO WHY WAS DONE. CURRENTLY 2.5 AT LOWEST AGAIN. GIVEN 60MEQ PO X1 ALREADY AND CURRENTLY GETTING 40MEQ IV X1. MAGNESIUMS 1.7; GIVEN MAGNESIUM OXIDE. WILL CALL HOSPITALIST FOR SYMPTOAMTIC HYPOKALEMIA.) Departure - Departure Date of Disposition Decision: 11/09/18 Time of Disposition Decision: 22:01 DIAGNOSIS: Hypokalemia Disposition: ADMITTED INPATIENT 09 Certified Medical Emergency: Emergent Condition: Fair Referrals and Follow-Ups: Reggie Hernandez MD [Primary Care Provider] - - Critical Care Note This patient required my direct & personal management of CC.: No Attestation - Physician/ [place] Attestation Patient care was provided by Advanced Practice Provider:: No The physician spent face to face time with patient:: Yes Advanced Practice Provider documentation review:: Supervising physician onsite and consulted in the evaluation and care of this patient. The physician did have a face to face encounter with the patient. This chart was documented by the indicated scribe, (Bekah Ryder Scribe) and accurately reflects the services I performed and decisions made by me, Mohinder Carias MD, as attested by the provider's signature.
[2018-11-10 07:24] LABS: BASO# 0.02 X1000 (0.0-0.2); BASO% 0.4 % (0.0-0.8); EOS# 0.02 X1000 (0.0-0.7); EOS% 0.4 % (0.0-10.0); HEMATOCRIT 34.3 % (37.0-47.0); HEMOGLOBIN 11.1 g/dL (12.0-16.0); IMM GRAN# 0.02 X1000 (0.0-0.04); IMM GRAN% 0.4 % (0.0-0.5); LYMPH# 1.18 X1000 (1.2-3.4); LYMPH% 24.3 % (20.5-51.1); MCH 29.1 PG (27-31); MCHC 32.4 g/dL (33-37); MONO# 0.58 X1000 (0.11-0.59); MPV 9.1 FL (7.4-10.4); NEUT# 3.03 X1000 (1.4-6.5); NEUT% 62.5 % (42.2-75.2); PLT 381 X1000 (130-400); RBC 3.81 XMIL (4.2-5.4); RDW 14.3 % (11.5-14.5); WBC 4.85 X1000 (4.8-10.8)
[2018-11-10 07:40] LABS: AGAP 8; BUN 10 mg/dL (8-22); CALCIUM 8.6 mg/dL (8.8-10.2); CHLORIDE 100 mmol/L (98-107); COSMO 272; CREATININE 0.5 mg/dL (0.5-0.9); ESTIMATED GFR > 60; GLUCOSE 108 mg/dL (70-104); SODIUM 136 mmol/L (136-145); TCO2 28 mmol/L (25-35)
[2018-11-10] MEDS ORDERED: VALIUM PO PRN (13:41)
[2018-11-10] MEDS ORDERED: NORCO-5 PO PRN (13:41)
[2018-11-10 16:40] VITALS: BP 178/71
[2018-11-10] MEDS ORDERED: DIOVAN PO SCH (21:00)
[2018-11-10] MEDS ORDERED: SEROQUEL PO SCH (21:00)
[2018-11-10] MEDS ORDERED: THEO-DUR PO SCH (21:00)
--- NOTE | 2018-11-11 01:48 | DISCHARGE SUMMARY ---
ADMISSION DATE: 11/09/2018 DISCHARGE DATE: 11/10/2018 DISCHARGE DIAGNOSES: 1. Hypokalemia. 2. Weakness. 3. Early dementia, not otherwise specified. BRIEFLY: This is a 73-year-old female presenting recurrently with hypokalemia. She was here not too long ago with hypokalemia, discharged on 11/06 actually. She had a small- bowel obstruction, an upper GI bleed, hyponatremia, and dementia. She was discharged on hydrochlorothiazide and Seroquel, which I think was a new medication. In any case, she came back in with hypokalemia. She has had some episodes of confusion and she has had Seroquel, but it is unclear if she has actually been taking her medications. In any case, her potassium was mildly low. It is since corrected. She seems to be doing well. She is a little recalcitrant to admit she has any cognitive deficits, and it is possible it could be depression but, in any case, she seems to be doing better. I did recommend stopping the hydrochlorothiazide because she gets for currently hypokalemic. She does have some lower extremity edema, it is not clear she has heart failure and I cannot tell that we have done an echo on her, not in our system in any case. We will set her up for an outpatient echo. DISCHARGE MEDICATIONS: I did stop her hydrochlorothiazide and placed her on Aldactone at 12.5 daily, and started her on potassium supplements. Diazepam 5 b.i.d., [place] p.r.n., Prilosec 20 daily, Zofran p.r.n., Jerry-Dur 300 b.i.d., valsartan 160 b.i.d., Seroquel 50 nightly, amlodipine 5 b.i.d., Catap[place] patch daily, multivitamin daily, Klor-Con 20 b.i.d. for 2 days , and then daily, and Aldactone 12.5 daily. FOLLOW-UP: Would recommend follow BNP in 1 week with PCP, who is Dr. Hernandez. Follow up with Neurology in the next 1 to 2 weeks. An outpatient echo in 1 week, we will try to get that set up just to evaluate for heart failure. TIME SPENT: 32 minutes. cc: MD Reggie Gan MD [facility]
[2018-11-11] MEDS ORDERED: CENTRUM SILVER PO SCH (09:00)
[2018-11-11] MEDS ORDERED: PRILOSEC PO SCH (09:00)
[2018-11-16] MEDS ORDERED: CATAPRES-TTS-2 TD SCH (09:00)
== END 2018-11-10 21:00 | disposition home health service (06) ==
LOC: ED 13:29 → 3N 13:29 → SUATTDRO 22:40
PROVIDERS: ATTEND Internal Medicine
CPT/HCPCS: 80048; 80053; 81001; 82550; 83735; 83880; 84439; 84443; 84484; 85025; 87275; 87276; 87804; 93005; 96365; 99285; A9270